=== PATIENT | male | born 1975 ===

== ENCOUNTER 2017-10-26 21:19 | Emergency (ER) | payer SELFPAY ==
[2017-10-26] MEDS ORDERED: Albuterol-Ipratrop 3 mg / 0.5 (3 ml) UD IH STA (21:50)
[2017-10-26 21:54] VITALS: TEMP 98.6; BMI 31.2
--- NOTE | 2017-10-26 22:00 | ED PDOC ---
Arrival/HPI <Tanner Brunson - Last Filed: 10/26/17 22:34> - History of Present Illness Time/Duration: < week Symptom Onset: Gradual Symptom Course: Worsening Quality: Tightness Activities at Onset: Significant Context: Walking, Exertion <Geovanny Munguia - Last Filed: 10/27/17 00:05> - General Chief Complaint: Shortness Of Breath - History of Present Illness Narrative History of Present Illness (Text): 10/26/17 22:07 42 yo M with PMH of asthma/COPD presents to the ER complaining of subjective fever for the past 2 days, and chest tightness since this morning. He denies pain, diaphoresis. He reports shortness of breath, especially when walking up stairs. He reports that symptoms are similar to previous asthma exacerbations. He denies any sick contacts, recent travel, recent changes in medications. He tried using his albuterol inhaler, with minimal symptomatic relief. 10/26/17 22:29 (Geovanny Munguia) Past Medical History <Tanner Brunson - Last Filed: 10/26/17 22:34> - Provider Review Nursing Documentation Reviewed: Yes - Travel History Have you recently traveled outside [place] w/in the past 3 mons?: No - Infectious Disease Hx of Infectious Diseases: None - Tetanus Immunization Tetanus Immunization: Unknown - Cardiac Hx Cardiac Disorders: No - Pulmonary Hx Respiratory Disorders: Yes Hx Asthma: Yes Other/Comment: PNEUMOTHORAX 2 YRS AGO-TUBE PLACED LEFT SIDE OF LUNG. - Neurological Hx Neurological Disorder: No - HEENT Hx HEENT Disorder: No - Renal Hx Renal Disorder: No - Endocrine/Metabolic Hx Endocrine Disorders: No - Hematological/Oncological Hx Blood Disorders: No - Integumentary Hx Dermatological Disorder: No - Musculoskeletal/Rheumatological Hx Musculoskeletal Disorders: No Hx Falls: No - Gastrointestinal Hx Gastrointestinal Disorders: No - Genitourinary/Gynecological Hx Genitourinary Disorders: No - Psychiatric Hx Psychophysiologic Disorder: No Hx Substance Use: No - Past Surgical History Past Surgical History: No Previous - Surgical History Other/Comment: fluid removed out of chest 2 yrs ago - Suicidal Assessment Feels Threatened In Home Enviroment: No <Geovanny Munguia - Last Filed: 10/27/17 00:05> - Patient History Narrative Patient History: Asthma, COPD (Geovanny Munguia) Family/Social History - Physician Review Nursing Documentation Reviewed: Yes Family/Social History: Unknown Family HX Smoking Status: Former Smoker Hx Alcohol Use: No Hx Substance Use: No Hx Substance Use Treatment: No <NildaMiteshjose rgreg - Last Filed: 10/27/17 00:05> Allergies/Home Meds <Tanner Brunson - Last Filed: 10/26/17 22:34> <NildaMiteshjose rgreg - Last Filed: 10/27/17 00:05> Allergies/Adverse Reactions: Allergies No Known Allergies Allergy (Verified 10/26/17 21:32) Review of Systems - Review of Systems Constitutional: Fevers Eyes: Normal ENT: Normal Respiratory: SOB, Wheezing Cardiovascular: Normal Gastrointestinal: Normal Genitourinary Male: Normal Musculoskeletal: Normal Skin: Normal Neurological: Normal Endocrine: Normal Hemo/Lymphatic: Normal Psychiatric: Normal <NildaMiteshjace - Last Filed: 10/27/17 00:05> Physical Exam Vital Signs Reviewed: Yes Temperature: Afebrile Blood Pressure: Normal Pulse: Tachycardic Appearance: Positive for: Non-Toxic, Uncomfortable Pain Distress: None Mental Status: Positive for: Alert and Oriented X 3 - Systems Exam Head: Present: Atraumatic, Normocephalic Pupils: Present: PERRL Extroacular Muscles: Present: EOMI Conjunctiva: Present: Normal Mouth: Present: Moist Mucous Membranes Pharnyx: Present: Normal. No: ERYTHEMA, EXUDATE, TONSILS ENLARGED Neck: Present: Normal Range of Motion Respiratory/Chest: Present: Wheezes. No: Good Air Exchange, Accessory Muscle Use, Tachypneic Cardiovascular: Present: Regular Rate and Rhythm, Normal S1, S2, Tachycardic Abdomen: Present: Normal Bowel Sounds. No: Tenderness, Distention, Peritoneal Signs Upper Extremity: Present: Normal Inspection. No: Cyanosis, Edema Lower Extremity: Present: Normal Inspection. No: Edema, CALF TENDERNESS Neurological: Present: GCS=15, CN II-XII Intact Skin: Present: Warm, Dry, Normal Color Psychiatric: Present: Alert, Oriented x 3 <Geovanny Munguia - Last Filed: 10/27/17 00:05> Vital Signs Temp Pulse Resp BP Pulse Ox 10/26/17 21:19 98.6 F 104 H 20 129/89 97 Medical Decision Making <Tanner Brunson - Last Filed: 10/26/17 22:34> <Geovanny Mnuguia - Last Filed: 10/27/17 00:05> ED Course and Treatment: Impression: Pt seen and evaluated with medical billing service. Aware and agree with HPI, clinical findings, plan, and management. Pt, whose past medical history includes asthma, presented for subjective fever and chest tightness since yesterday morning. Plan: -- Duoneb -- Solu-medrol -- Reassess and disposition (Tanner Brunson) 10/26/17 22:24 Impression: Shortness of breath, likely secondary to mild asthma exacerbation Differential Diagnosis included but are not limited to: asthma exacerbation, COPD exacerbation Plan: -- IV solumedrol 125mg -- Duoneb breathing treatment x1 -- Peak flow meter, initial 150 L/min; repeat after breathing treatment -- Reassess and disposition Prior Visits: Notes and results from previous visits were reviewed. Patient was last seen in the emergency department on 12/20/2015. Patient was admitted for asthma exacerbation. Progress Notes: 10/26/17 23:32 After breathing treatment and IV steroids, patient feels symptomatically improved. Peak flow meter improved to 250 L/min 10/27/17 00:02 Patient reports breathing back to baseline. Will discharge home with 5 day course of PO prednisone. Instructed patient to return for any new or worsening concerns. Follow up with his PMD within one week (Geovanny Munguia) - Medication Orders Current Medication Orders: Discontinued Medications Albuterol/Ipratropium (Duoneb 3 Mg/0.5 Mg (3 Ml) Ud) 3 ml IH STAT STA Stop: 10/26/17 21:51 Last Admin: 10/26/17 22:09 Dose: 3 ml Methylprednisolone (Solu-Medrol) 125 mg IVP STAT STA Stop: 10/26/17 21:51 Last Admin: 10/26/17 22:09 Dose: 125 mg IVP Administration Document 10/26/17 22:09 DARIANA (Rec: 10/26/17 22:09 JOSheri [id number]) Charges for Administration # of IVP Administrations 1 - PA / HEAD WRESTLING COACH / Resident Statement / has reviewed & agrees with the documentation as recorded. / has examined the patient and agrees with the treatment plan. <Tanner Brunson - Last Filed: 10/26/17 22:34> Disposition/Present on Arrival <NannetteTanner pena - Last Filed: 10/26/17 22:34> - Present on Arrival Any Indicators Present on Arrival: No History of DVT/PE: No History of Uncontrolled Diabetes: No Urinary Catheter: No History of Decub. Ulcer: No History Surgical Site Infection Following: None - Disposition Have Diagnosis and Disposition been Completed?: Yes Disposition Time: 00:05 Patient Plan: Discharge <Geovanny Munguia - Last Filed: 10/27/17 00:05> - Disposition Diagnosis: Asthma exacerbation Disposition: HOME/ ROUTINE Patient Problems: Current Active Problems Problem Status Onset Asthma exacerbation Acute Condition: FAIR Discharge Instructions (ExitCare): Asthma, Adult (DC), Medicines for Asthma, Avoiding Asthma Triggers Prescriptions: predniSONE [predniSONE Tab] 40 mg PO DAILY 5 Days tab Referrals: Farida Correia APN-C [Primary Care Provider] - Follow up with primary Forms: [employer] (Tuvaluan)
[2017-10-27 00:59] VITALS: BP 106/72; PULSE 70; RESP 18; O2SAT 99
== END 2017-10-27 00:30 | disposition home or self-care (01) ==
LOC: ED 21:19
DX: J45.901 Unspecified asthma with (acute) exacerbation (principal); Z87.891 Personal history of nicotine dependence
CPT/HCPCS: 96374; 99284; J2930

== ENCOUNTER 2018-03-31 10:23 | Emergency (ER) | payer OTHER ==
[2018-03-31 10:23] VITALS: BMI 26.2
[2018-03-31 11:02] VITALS: RESP 18
[2018-03-31] MEDS ORDERED: Albuterol-Ipratrop 3 mg / 0.5 (3 ml) UD ONE (11:09)
[2018-03-31] MEDS ORDERED: Albuterol-Ipratrop 3 mg / 0.5 (3 ml) UD IH STA (11:10)
--- NOTE | 2018-03-31 11:14 | ED PDOC ---
Arrival/HPI - General Chief Complaint: Cough, Cold, Congestion Time Seen by Provider: 03/31/18 11:09 Historian: Patient - History of Present Illness Narrative History of Present Illness (Text): 03/31/18 11:11 42 y/o male, pmh including asthma?, nkda, c/o coughing and wheezing started yesterday. Dry coughing, associated with scattered wheezing, out of the albuterol MDI, no fever or chills, no myalgia, no rash, no dizziness, no change in vision, no palpitation, no chest pain or shortness of breath, no other medical or psychological complaints. Past Medical History - Provider Review Nursing Documentation Reviewed: Yes - Infectious Disease Hx of Infectious Diseases: None - Tetanus Immunization Tetanus Immunization: Unknown - Cardiac Hx Cardiac Disorders: No - Pulmonary Hx Respiratory Disorders: Yes Hx Asthma: Yes Other/Comment: PNEUMOTHORAX 2 YRS AGO-TUBE PLACED LEFT SIDE OF LUNG. - Neurological Hx Neurological Disorder: No - HEENT Hx HEENT Disorder: No - Renal Hx Renal Disorder: No - Endocrine/Metabolic Hx Endocrine Disorders: No - Hematological/Oncological Hx Blood Disorders: No - Integumentary Hx Dermatological Disorder: No - Musculoskeletal/Rheumatological Hx Musculoskeletal Disorders: No Hx Falls: No - Gastrointestinal Hx Gastrointestinal Disorders: No - Genitourinary/Gynecological Hx Genitourinary Disorders: No - Psychiatric Hx Psychophysiologic Disorder: No Hx Substance Use: No - Past Surgical History Past Surgical History: No Previous - Surgical History Other/Comment: fluid removed out of chest 2 yrs ago - Anesthesia Hx Anesthesia: Yes Hx Anesthesia Reactions: No Hx Malignant Hyperthermia: No - Suicidal Assessment Feels Threatened In Home Enviroment: No Family/Social History - Physician Review Nursing Documentation Reviewed: Yes Family/Social History: Unknown Family HX Smoking Status: Former Smoker Hx Alcohol Use: No Hx Substance Use: No Hx Substance Use Treatment: No Allergies/Home Meds Allergies/Adverse Reactions: Allergies No Known Allergies Allergy (Verified 03/31/18 11:02) Review of Systems - Review of Systems Constitutional: absent: Fatigue, Fevers Eyes: absent: Vision Changes ENT: absent: Hearing Changes Respiratory: Cough, Wheezing. absent: SOB, Sputum Cardiovascular: absent: Chest Pain Gastrointestinal: absent: Abdominal Pain, Diarrhea, Nausea, Vomiting Musculoskeletal: absent: Arthralgias, Back Pain Skin: absent: Rash, Pruritis Neurological: absent: Headache, Dizziness Hemo/Lymphatic: absent: Adenopathy, Easy Bleeding Psychiatric: absent: Anxiety, Depression, Suicidal Ideation Physical Exam Vital Signs Reviewed: Yes Vital Signs Temp Pulse Resp BP Pulse Ox 03/31/18 12:12 97.8 F 78 18 113/71 98 03/31/18 10:55 99.1 F 91 H 18 112/73 95 Temperature: Afebrile Blood Pressure: Normal Pulse: Regular Respiratory Rate: Normal Appearance: Positive for: Well-Appearing, Non-Toxic, Comfortable Pain Distress: None Mental Status: Positive for: Alert and Oriented X 3 - Systems Exam Head: Present: Atraumatic, Normocephalic Pupils: Present: PERRL Extroacular Muscles: Present: EOMI Conjunctiva: Present: Normal Mouth: Present: Moist Mucous Membranes Neck: Present: Normal Range of Motion Respiratory/Chest: Present: Clear to Auscultation, Good Air Exchange, Wheezes. No: Respiratory Distress, Accessory Muscle Use, Decreased Breath Sounds, Rales, Retracting, Rhonchi, Tachypneic, Tender to Palpation Cardiovascular: Present: Regular Rate and Rhythm, Normal S1, S2. No: Murmurs Abdomen: No: Tenderness, Distention, Peritoneal Signs, Rebound, Guarding Back: Present: Normal Inspection Upper Extremity: Present: Normal Inspection. No: Cyanosis, Edema Lower Extremity: Present: Normal Inspection. No: Edema Neurological: Present: GCS=15, CN II-XII Intact, Speech Normal, Motor Func Grossly Intact, Gait Normal, Memory Normal Skin: Present: Warm, Dry, Normal Color. No: Rashes Psychiatric: Present: Alert, Oriented x 3, Normal Insight, Normal Concentration Medical Decision Making ED Course and Treatment: 03/31/18 11:13 -Duoneb x 2, prednisone 60mg po, azithromycin 500mg po -CXR -Observe and reassess 03/31/18 12:09 -Chest xray show no active disease, pt. feels much better, wheezing resolved, walking around with no shortness of breath, all results discussed with the patient, pt. requested to be discharge home. -Discharge home with azithromycin, prednisone, albuterol MDI, stay hydrated, bed rest, follow up with your own pmd within 2 days, return to the ER for any new or worsening signs or symptoms. - RAD Interpretation Radiology Orders: 03/31/18 11:10 CHEST PORTABLE [RAD] Stat Date of service: 03/31/2018 HISTORY: medical clearance COMPARISON: 12/21/2015 FINDINGS: LUNGS: No active pulmonary disease. PLEURA: No significant pleural effusion identified, no pneumothorax apparent. CARDIOVASCULAR: Normal. OSSEOUS STRUCTURES: No significant abnormalities. VISUALIZED UPPER ABDOMEN: Normal. OTHER FINDINGS: None. IMPRESSION: No active disease. Sports Physical Therapist: Radiologist - Medication Orders Current Medication Orders: Discontinued Medications Albuterol/Ipratropium (Duoneb 3 Mg/0.5 Mg (3 Ml) Ud) 3 ml IH STAT STA Stop: 03/31/18 11:11 Last Admin: 03/31/18 11:38 Dose: 3 ml Azithromycin (Zithromax) 500 mg PO STAT STA PRN Reason: Protocol Stop: 03/31/18 11:11 Last Admin: 03/31/18 11:34 Dose: 500 mg Prednisone (Prednisone Tab) 60 mg PO STAT ONE Stop: 03/31/18 11:11 Last Admin: 03/31/18 11:36 Dose: 60 mg - PA / FARM DEMONSTRATOR / Resident Statement MD/DO has reviewed & agrees with the documentation as recorded. Disposition/Present on Arrival - Present on Arrival Any Indicators Present on Arrival: No History of DVT/PE: No History of Uncontrolled Diabetes: No Urinary Catheter: No History of Decub. Ulcer: No History Surgical Site Infection Following: None - Disposition Have Diagnosis and Disposition been Completed?: Yes Diagnosis: Bronchitis Disposition: HOME/ ROUTINE Disposition Time: 11:42 Patient Plan: Discharge Condition: IMPROVED Additional Instructions: -Discharge home with azithromycin, prednisone, albuterol MDI, stay hydrated, bed rest, follow up with your own pmd within 2 days, return to the ER for any new or worsening signs or symptoms. Prescriptions: Albuterol HFA [Ventolin HFA 90 mcg/actuation (8 g)] 2 puff IH [id number] PRN #1 inhaler PRN Reason: Cough Azithromycin [Zithromax] 250 mg PO DAILY #4 tab Prednisone 50 mg PO DAILY #4 tablet Referrals: Sherley Ybarra MD [Staff Provider] - [place] up with primary [facility] [place] - Follow up with primary Forms: [employer] (Romansh), WORK NOTE
[2018-03-31 12:13] VITALS: BP 113/71; PULSE 78; TEMP 97.8; O2SAT 98
--- NOTE | 2018-03-31 14:51 | RAD ---
Date of service: 03/31/2018 HISTORY: medical clearance COMPARISON: 12/21/2015 FINDINGS: LUNGS: No active pulmonary disease. PLEURA: No significant pleural effusion identified, no pneumothorax apparent. CARDIOVASCULAR: Normal. OSSEOUS STRUCTURES: No significant abnormalities. VISUALIZED UPPER ABDOMEN: Normal. OTHER FINDINGS: None. IMPRESSION: No active disease.
== END 2018-03-31 12:24 | disposition home or self-care (01) ==
LOC: ED 10:23
DX: J40 Bronchitis, not specified as acute or chronic (principal); Z87.891 Personal history of nicotine dependence

== ENCOUNTER 2018-04-14 22:31 | Emergency (ER) | payer OTHER ==
[2018-04-14] MEDS ORDERED: MethylPREDNISolone 40 mg Vial ONE (22:39)
[2018-04-14] MEDS ORDERED: Albuterol-Ipratrop 3 mg / 0.5 (3 ml) UD ONE (22:45)
[2018-04-14 22:47] VITALS: BMI 27.3
[2018-04-14] MEDS ORDERED: MethylPREDNISolone 40 mg Vial IVP STA (22:49)
[2018-04-14] MEDS ORDERED: Magnesium Sulfate 2 gm/50 ml 2 GM/50 ML BAG IVPB ONE (22:49)
--- NOTE | 2018-04-14 22:49 | ED PDOC ---
Arrival/HPI - General Time Seen by Provider: 04/14/18 22:48 Historian: Patient - History of Present Illness Narrative History of Present Illness (Text): 04/14/18 22:49 42 year old male, whose past medial history includes asthma/COPD, presents to the emergency department complaining of shortness of breath. Patient denies any fever, chills, chest pain, nausea, vomiting, diarrhea, urinary symptoms, back pain, neck pain, headache, dizziness, or any other complaints. Symptom Onset: Gradual Symptom Course: Unchanged Activities at Onset: Light Context: Home Past Medical History - Provider Review Nursing Documentation Reviewed: Yes - Infectious Disease Hx of Infectious Diseases: None - Tetanus Immunization Tetanus Immunization: Unknown - Cardiac Hx Cardiac Disorders: No - Pulmonary Hx Respiratory Disorders: Yes Hx Asthma: Yes Other/Comment: PNEUMOTHORAX 2 YRS AGO-TUBE PLACED LEFT SIDE OF LUNG. - Neurological Hx Neurological Disorder: No - HEENT Hx HEENT Disorder: No - Renal Hx Renal Disorder: No - Endocrine/Metabolic Hx Endocrine Disorders: No - Hematological/Oncological Hx Blood Disorders: No - Integumentary Hx Dermatological Disorder: No - Musculoskeletal/Rheumatological Hx Musculoskeletal Disorders: No Hx Falls: No - Gastrointestinal Hx Gastrointestinal Disorders: No - Genitourinary/Gynecological Hx Genitourinary Disorders: No - Psychiatric Hx Psychophysiologic Disorder: No Hx Substance Use: No - Past Surgical History Past Surgical History: No Previous - Surgical History Other/Comment: fluid removed out of chest 2 yrs ago - Anesthesia Hx Anesthesia: Yes Hx Anesthesia Reactions: No Hx Malignant Hyperthermia: No - Suicidal Assessment Feels Threatened In Home Enviroment: No Family/Social History - Physician Review Nursing Documentation Reviewed: Yes Family/Social History: No Known Family HX Smoking Status: Former Smoker Hx Alcohol Use: No Hx Substance Use: No Hx Substance Use Treatment: No Allergies/Home Meds Allergies/Adverse Reactions: Allergies No Known Allergies Allergy (Verified 04/14/18 22:46) Review of Systems - Physician Review All systems were reviewed & negative as marked: Yes - Review of Systems Constitutional: absent: Fevers, Other (Chills) Respiratory: SOB Cardiovascular: absent: Chest Pain Gastrointestinal: absent: Diarrhea, Nausea, Vomiting Genitourinary Male: absent: Dysuria, Frequency, Hematuria Musculoskeletal: absent: Back Pain, Neck Pain Neurological: absent: Headache, Dizziness Physical Exam - Physical Exam Narrative Physical Exam (Text): Gen: VS reviewed, alert, well developed, well nourished, nontoxic, mild distress. ENT: normal pharynx. Eye: EOMI, PERRL. Neck: no JVD, supple, no adenopathy. CV: regular rate, regular rhythm, no rubs, no murmur, no gallops, S1, S2, pulses equal and strong. Pulm: Tachypneic. Talk in short phrase. Diffuse bilaterally expiratory wheeze. Poor air exchange bilaterally. no distress, no rhonchi, no rales. Abd: soft, nontender, no guarding, no rebound, no rigidity, normal bowel sounds. Ext: no edema. Skin: good color, no rash, no cyanosis. Psych: responds appropriately to questions, normal affect. Neuro: oriented x 3, CN2-12 intact grossly, motor intact, sensation intact. Vital Signs Reviewed: Yes Medical Decision Making ED Course and Treatment: 04/14/18 22:49 Impression: 42 year old male presents complaining of shortness of breath. Plan: -- Labs -- Douneb, Magnesium Sulfate, Solu-medrol -- Reassess and disposition Prior Visits: Notes and results from previous visits were reviewed. Patient was last seen in the emergency department on presents complaining cough and wheezing that began yesterday. Progress Notes: 04/15/18 01:27 patient feel much better, appears comfortable, on repeat lung exam wheezing has resolved, good air exchange bilat. Patient remained stable throughout ED course with complete resolution of symptoms. All detailed hx of patient obtained through maltese language line: [id number]. 04/15/18 01:32 PMHx: asthma PSHx: none - Lab Interpretations I have reviewed the lab results: Yes - Scribe Statement The provider has reviewed the documentation as recorded by the Pastora Omer Provider Scribe Attestation: All medical record entries made by the Scribclarice were at my direction and personally dictated by me. I have reviewed the chart and agree that the record accurately reflects my personal performance of the history, physical exam, medical decision making, and the department course for this patient. I have also personally directed, reviewed, and agree with the discharge instructions and disposition. Disposition/Present on Arrival - Present on Arrival Any Indicators Present on Arrival: No History of DVT/PE: No History of Uncontrolled Diabetes: No Urinary Catheter: No History Surgical Site Infection Following: None - Disposition Have Diagnosis and Disposition been Completed?: Yes Diagnosis: Asthma exacerbation Disposition: HOME/ ROUTINE Disposition Time: : Patient Plan: Discharge Patient Problems: Current Active Problems Problem Status Onset Asthma exacerbation Acute Condition: STABLE Discharge Instructions (ExitCare): Asthma in Adults Print Language: SWAZI Additional Instructions: BENJAMIN RANGEL, thank you for letting us take care of you today. Your provider was Dr. Harshal Sierra and you were treated for ASTHMA. The emergency medical care you received today was directed at your acute symptoms. If you were prescribed any medication, please fill it and take as directed. It may take several days for your symptoms to resolve. Return to the Emergency Department if your symptoms worsen, do not improve, or if you have any other problems. Please contact your doctor or call one of the physicians/clinics you have been referred to that are listed on the Patient Visit Information form that is included in your discharge packet. Bring any paperwork you were given at discharge with you along with any medications you are taking to your follow up visit. Our treatment cannot replace ongoing medical care by a primary care provider outside of the emergency department. Thank you for allowing the [facility] team to be part of your care today. If you had an X-Ray or CT scan: A Radiologist will review the ED reading if any change in treatment is needed we will contact you. If you had a blood, urine, or wound culture: It will take several days for the results, if any change in treatment is needed we will contact you. If you had an STI test: It will take 48 hours for the results. Please call after 1 week if you have not heard back. Prescriptions: Albuterol HFA [Ventolin HFA 90 mcg/actuation (8 g)] 1 puff IH Q4H #1 inhaler Referrals: [facility] [Outside] - Follow up with primary
[2018-04-14] MEDS: Albuterol-Ipratrop 3 mg / 0.5 (3 ml) UD IH SCH ×3 (23:00→23:30)
[2018-04-14 23:04] LABS: BASO # 0.02 K/mm3 (0.0-2.0); BASO % 0.2 % (0.0-3.0); EOS % 9.5 % (1.5-5.0); GRAN # 5.45 (1.4-6.5); GRAN % 52.3 % (50.0-68.0); LYMPH # 3.3 (1.2-3.4); LYMPH % 31.9 % (22.0-35.0); MEAN CELL VOLUME 87.9 fl (80.0-105.0); MEAN CORPUSCULAR HEMOGLOBIN 30.2 pg (25.0-35.0); MEAN CORPUSCULAR HGB CONC 34.3 g/dl (31.0-37.0); MEAN PLATELET VOLUME 8.8 fl (7.0-11.0); MONO # 0.6 (0.1-0.6); MONO % 6.1 % (1.0-6.0); RBC 5.3 10^6/uL (3.5-6.1); RED CELL DISTRIBUTION WIDTH 13.5 % (11.5-14.5); WHITE BLOOD COUNT 10.4 10^3/ul (4.5-11.0)
[2018-04-14] MEDS ORDERED: Albuterol 0.083% Inhal Sol (2.5 mg/3 mL) UD INH STA (23:55)
[2018-04-15 00:02] LABS: BLOOD UREA NITROGEN 22 mg/dL (7-21); CALCIUM 8.4 mg/dL (8.4-10.5); GFR NON-AFRICAN AMERICAN > 60
[2018-04-15 01:34] VITALS: BP 115/77; PULSE 78; RESP 18
[2018-04-15 03:04] VITALS: O2SAT 100
== END 2018-04-15 01:39 | disposition home or self-care (01) ==
LOC: ED 22:31
DX: J45.901 Unspecified asthma with (acute) exacerbation (principal); Z87.891 Personal history of nicotine dependence
CPT/HCPCS: 80048; 85025; 96374; 99284; J2920

== ENCOUNTER 2018-06-07 11:25 | Emergency (ER) | payer OTHER ==
[2018-06-07 11:38] VITALS: BMI 22.4
[2018-06-07 12:09] VITALS: BP 122/63; PULSE 77
[2018-06-07] MEDS: Albuterol-Ipratrop 3 mg / 0.5 (3 ml) UD IH SCH ×3 (12:17→12:50)
--- NOTE | 2018-06-07 12:38 | RAD ---
Date of service: 06/07/2018 HISTORY: sob COMPARISON: 03/31/2018 TECHNIQUE: Chest PA and lateral FINDINGS: LUNGS: No active pulmonary disease. PLEURA: No significant pleural effusion identified. No pneumothorax apparent. CARDIOVASCULAR: No aortic atherosclerotic calcification present. Normal cardiac size. No pulmonary vascular congestion. OSSEOUS STRUCTURES: No significant abnormalities. VISUALIZED UPPER ABDOMEN: Normal. OTHER FINDINGS: None. IMPRESSION: No active disease.
--- NOTE | 2018-06-07 12:51 | ED PDOC ---
Arrival/HPI - General Chief Complaint: Chest Pain Time Seen by Provider: 06/07/18 11:59 Historian: Patient - History of Present Illness Narrative History of Present Illness (Text): 06/07/18 12:10 A 42 year old male, whose past medical history includes asthma, presents to the emergency department complaining of upper chest congestion since a few days ago. Patient reports that he has these symptoms with associated difficulty breathing when he wakes up and more significantly at night. Patient reports he experiences associated ache in his left upper back and denies any active cough today, or any drug or alcohol abuse. Patient denies any fever, chills, shortness of breath, cough, chest pain, diarrhea, nausea, vomiting, urinary symptoms, back pain, neck pain, headache, dizziness, or any other complaints. PMD: [facility]. Time/Duration: Other (a few days) Symptom Onset: Gradual Symptom Course: Unchanged Activities at Onset: Light Context: Home Past Medical History - Provider Review Nursing Documentation Reviewed: Yes - Infectious Disease Hx of Infectious Diseases: None - Tetanus Immunization Tetanus Immunization: Unknown - Cardiac Hx Cardiac Disorders: No - Pulmonary Hx Respiratory Disorders: Yes Hx Asthma: Yes Other/Comment: PNEUMOTHORAX 2 YRS AGO-TUBE PLACED LEFT SIDE OF LUNG. - Neurological Hx Neurological Disorder: No - HEENT Hx HEENT Disorder: No - Renal Hx Renal Disorder: No - Endocrine/Metabolic Hx Endocrine Disorders: No - Hematological/Oncological Hx Blood Disorders: No - Integumentary Hx Dermatological Disorder: No - Musculoskeletal/Rheumatological Hx Musculoskeletal Disorders: No Hx Falls: No - Gastrointestinal Hx Gastrointestinal Disorders: No - Genitourinary/Gynecological Hx Genitourinary Disorders: No - Psychiatric Hx Psychophysiologic Disorder: No Hx Substance Use: No - Past Surgical History Past Surgical History: No Previous - Surgical History Other/Comment: fluid removed out of chest 2 yrs ago - Anesthesia Hx Anesthesia: Yes Hx Anesthesia Reactions: No Hx Malignant Hyperthermia: No - Suicidal Assessment Feels Threatened In Home Enviroment: No Family/Social History - Physician Review Nursing Documentation Reviewed: Yes Family/Social History: No Known Family HX Smoking Status: Former Smoker Hx Alcohol Use: No Hx Substance Use: No Hx Substance Use Treatment: No Allergies/Home Meds Allergies/Adverse Reactions: Allergies No Known Allergies Allergy (Verified 06/07/18 11:38) Review of Systems - Physician Review All systems were reviewed & negative as marked: Yes - Review of Systems Respiratory: Other (+Difficulty breathing). absent: SOB Cardiovascular: Other (+upper chest discomfort). absent: Chest Pain Gastrointestinal: absent: Diarrhea, Nausea, Vomiting Genitourinary Male: absent: Urinary Output Changes Musculoskeletal: Back Pain (+ache in left upper back). absent: Neck Pain Neurological: absent: Headache, Dizziness Physical Exam Vital Signs Reviewed: Yes Vital Signs Temp Pulse Resp BP Pulse Ox 06/07/18 12:09 98.7 F 77 18 122/63 95 Temperature: Afebrile Blood Pressure: Normal Pulse: Regular Respiratory Rate: Normal Appearance: Positive for: Well-Appearing, Non-Toxic Pain Distress: None Mental Status: Positive for: Alert and Oriented X 3 - Systems Exam Head: Present: Atraumatic, Normocephalic Pupils: Present: PERRL Extroacular Muscles: Present: EOMI Conjunctiva: Present: Normal Respiratory/Chest: Present: Wheezes. No: Retracting, Tender to Palpation Upper Extremity: Present: Normal Inspection. No: Cyanosis, Edema Lower Extremity: Present: Normal Inspection. No: Edema Neurological: Present: GCS=15, CN II-XII Intact, Speech Normal Skin: Present: Warm, Dry, Normal Color. No: Rashes Psychiatric: Present: Alert, Oriented x 3, Normal Insight, Normal Concentration Medical Decision Making ED Course and Treatment: 06/07/18 12:15 Impression: 42 year old male presenting to the emergency department for upper chest congestion. Differential Diagnosis included but are not limited to: asthma exacerbation Plan: -- EKG -- Motrin -- prednisone -- Reassess and disposition Prior Visits: Notes and results from previous visits were reviewed. Patient was last seen in the emergency department on 04/14/18 for shortness of breath and was discharged when symptoms improved. Progress Notes: 06/07/18 12:59 Upon re-evaluation, patient's lungs are clear with no shortness of breath. Patient states he does not need a prescription for albuterol pump or solution. EKG: Ordered, reviewed, and independently interpreted the EKG. Rate : 81 BPM Rhythm : NSR Interpretation : Sinus arrythmia, No ST-segment elevations or depressions. - RAD Interpretation Radiology Orders: 06/07/18 12:07 CHEST TWO VIEWS (PA/LAT) [RAD] Stat - Medication Orders Current Medication Orders: Discontinued Medications Albuterol/Ipratropium (Duoneb 3 Mg/0.5 Mg (3 Ml) Ud) 3 ml IH Q15M NANCI Stop: 06/07/18 12:46 Last Admin: 06/07/18 12:17 Dose: 3 ml Ibuprofen (Motrin Tab) 600 mg PO STAT STA Stop: 06/07/18 12:08 Last Admin: 06/07/18 12:15 Dose: 600 mg MAR Pain/Vitals Document 06/07/18 12:15 [email or web address] (Rec: 06/07/18 12:17 [email or web address] [facility] [place]-[id number]) Pain Reassessment Is This A Pain ReAssessment? No Sleep Is patient sleeping during reassessment? No Presence of Pain Presence of Pain Yes Pain Scale Used Protocol: PSCALES Pain Scale Used Numeric Location Pain Location Body Site Chest Description Constant Scale Used Numeric Pain Behavior Facial Grimacing Aggravating Factors Changing Position Alleviating Factors Medication Prednisone (Prednisone Tab) 60 mg PO STAT STA Stop: 06/07/18 12:08 Last Admin: 06/07/18 12:17 Dose: 60 mg - Lisaibe Statement The provider has reviewed the documentation as recorded by the Pastora Velasquez All medical record entries made by the Lisaibclarice were at my direction and personally dictated by me. I have reviewed the chart and agree that the record accurately reflects my personal performance of the history, physical exam, medical decision making, and the department course for this patient. I have also personally directed, reviewed, and agree with the discharge instructions and disposition. Disposition/Present on Arrival - Present on Arrival Any Indicators Present on Arrival: No History of DVT/PE: No History of Uncontrolled Diabetes: No Urinary Catheter: No History of Decub. Ulcer: No History Surgical Site Infection Following: None - Disposition Have Diagnosis and Disposition been Completed?: Yes Diagnosis: Asthma exacerbation Disposition: HOME/ ROUTINE Disposition Time: 12:59 Patient Plan: Discharge Condition: IMPROVED Discharge Instructions (ExitCare): Asthma in Adults Additional Instructions: BENJAMIN RANGEL, thank you for letting us take care of you today. Your provider was Abdi Mcrae DO and you were treated for Asthma Exacerbation. The emergency medical care you received today was directed at your acute symptoms. If you were prescribed any medication, please fill it and take as directed. It may take several days for your symptoms to resolve. Return to the Emergency Department if your symptoms worsen, do not improve, or if you have any other problems. Please contact your doctor or call one of the physicians/clinics you have been referred to that are listed on the Patient Visit Information form that is included in your discharge packet. Bring any paperwork you were given at discharge with you along with any medications you are taking to your follow up visit. Our treatment cannot replace ongoing medical care by a primary care provider outside of the emergency department. Thank you for allowing the [facility] team to be part of your care today. If you had an X-Ray or CT scan: A Radiologist will review the ED reading if any change in treatment is needed we will contact you. If you had a blood, urine, or wound culture: It will take several days for the results, if any change in treatment is needed we will contact you. If you had an STI test: It will take 48 hours for the results. Please call after 1 week if you have not heard back. Prescriptions: RX: predniSONE [predniSONE Tab] 40 mg PO DAILY #8 tab Referrals: [facility] [Outside] - Follow up with primary Jaki Mcleod MD [Medical Doctor] - Follow up with primary Forms: [employer] (Romansh), WORK NOTE
[2018-06-07 13:14] VITALS: RESP 19; TEMP 98.3; O2SAT 99
--- NOTE | 2018-06-08 07:37 | CARD ---
APPROVED REPORT Date of service: 06/07/2018 EKG Measurement Heart [id number] CT [id number] <Conclusion> Normal sinus rhythm with sinus arrhythmia Indeterminate axis No change except the rate has slowed.
== END 2018-06-07 13:14 | disposition home or self-care (01) ==
LOC: ED 11:25
DX: J45.901 Unspecified asthma with (acute) exacerbation (principal); Z87.891 Personal history of nicotine dependence

== ENCOUNTER 2018-06-22 09:06 | Emergency (ER) | payer OTHER ==
[2018-06-22 09:07] VITALS: BMI 22.4
[2018-06-22] MEDS ORDERED: Sodium Chloride 0.9% 1,000 ML IV STA (09:36)
--- NOTE | 2018-06-22 09:46 | ED PDOC ---
Arrival/HPI - General Historian: Patient - History of Present Illness Narrative History of Present Illness (Text): 06/22/18 09:40 42 y o male past medical hx asthma, presents to the emergency department complaining of nausea and diarrhea. States he has been not feeling well for the last 2 days but that his symptoms have gotten worse since yesterday. Reports 4 episodes of watery, non-bloody diarrhea yesterday afternoon, but states that he has had nausea before and after the episodes. States he has been unable to tolerate PO liquids and solid foods since yesterday afternoon. Also states he has associated abdominal tenderness, but rates it 1/10 currently. Denies fever or chills. Denies hx of sick contacts or recent antibiotic use. Denies headache, dizziness, chest pain, shortness of breath, vomiting episodes, constipation, urinary complaints, or other symptoms currently. Past medical history: asthma PSurgHx: denies Allergies: NKDA Home meds: Ventolin inhaler prn Fam hx: denies Soc hx: denies smoking, EtOH, or illicit drug use. PMD: [facility] Time/Duration: 24 hours Symptom Onset: Gradual Symptom Course: Worsening Quality: Unable to Describe Severity Level: 1 Activities at Onset: Rest, Light Context: Home <Basil Wright - Last Filed: 06/22/18 13:53> <Abdi Mcrae - Last Filed: 06/22/18 16:34> - General Chief Complaint: Abdominal Pain Time Seen by Provider: 06/22/18 09:07 Past Medical History - Provider Review Nursing Documentation Reviewed: Yes - Infectious Disease Hx of Infectious Diseases: None - Tetanus Immunization Tetanus Immunization: Unknown - Cardiac Hx Cardiac Disorders: No - Pulmonary Hx Respiratory Disorders: Yes Hx Asthma: Yes Other/Comment: PNEUMOTHORAX 2 YRS AGO-TUBE PLACED LEFT SIDE OF LUNG. - Neurological Hx Neurological Disorder: No - HEENT Hx HEENT Disorder: No - Renal Hx Renal Disorder: No - Endocrine/Metabolic Hx Endocrine Disorders: No - Hematological/Oncological Hx Blood Disorders: No - Integumentary Hx Dermatological Disorder: No - Musculoskeletal/Rheumatological Hx Musculoskeletal Disorders: No Hx Falls: No - Gastrointestinal Hx Gastrointestinal Disorders: No - Genitourinary/Gynecological Hx Genitourinary Disorders: No - Psychiatric Hx Psychophysiologic Disorder: No Hx Substance Use: No - Past Surgical History Past Surgical History: No Previous - Surgical History Other/Comment: fluid removed out of chest 2 yrs ago - Anesthesia Hx Anesthesia: Yes Hx Anesthesia Reactions: No Hx Malignant Hyperthermia: No - Suicidal Assessment Feels Threatened In Home Enviroment: No <Basil Wright - Last Filed: 06/22/18 13:53> Family/Social History - Physician Review Nursing Documentation Reviewed: Yes Family/Social History: No Known Family HX Smoking Status: Former Smoker Hx Alcohol Use: No Hx Substance Use: No Hx Substance Use Treatment: No <Basil Wright - Last Filed: 06/22/18 13:53> Allergies/Home Meds <Basil Wright - Last Filed: 06/22/18 13:53> <ThorAbdi L - Last Filed: 06/22/18 16:34> Allergies/Adverse Reactions: Allergies No Known Allergies Allergy (Verified 06/22/18 09:16) Review of Systems - Physician Review All systems were reviewed & negative as marked: Yes - Review of Systems Constitutional: Fatigue. absent: Weight Change, Fevers, Night Sweats Eyes: absent: Vision Changes Respiratory: absent: SOB, Cough, Wheezing Cardiovascular: absent: Chest Pain, Palpitations, Edema, NGUYEN Gastrointestinal: Abdominal Pain, Stool Changes, Diarrhea, Nausea, Appetite Changes. absent: Constipation, Vomiting Genitourinary Male: absent: Dysuria, Frequency, Hematuria, Urinary Output Changes Musculoskeletal: absent: Arthralgias, Back Pain Skin: absent: Rash Neurological: absent: Headache, Dizziness Endocrine: absent: Diaphoresis Hemo/Lymphatic: absent: Adenopathy <Basil Wright - Last Filed: 06/22/18 13:53> Physical Exam Vital Signs Temp Pulse Resp BP Pulse Ox 06/22/18 09:13 98.5 F 98 H 18 112/80 97 Temperature: Afebrile Blood Pressure: Normal Pulse: Regular Respiratory Rate: Normal Appearance: Positive for: Non-Toxic, Comfortable, Ill-Appearing Pain Distress: None Mental Status: Positive for: Alert and Oriented X 3 - Systems Exam Head: Present: Atraumatic, Normocephalic Pupils: Present: PERRL Extroacular Muscles: Present: EOMI Conjunctiva: Present: Normal Mouth: Present: Moist Mucous Membranes Neck: Present: Normal Range of Motion. No: JVD, Lymphadenopathy Respiratory/Chest: Present: Clear to Auscultation, Good Air Exchange. No: Respiratory Distress, Accessory Muscle Use, Wheezes, Rales, Rhonchi Cardiovascular: Present: Regular Rate and Rhythm, Normal S1, S2. No: Murmurs, Rub, Gallop Abdomen: Present: Tenderness (Mild tenderness to palpation in epigastric region), Normal Bowel Sounds. No: Distention, Rebound, Guarding, Mass/Organomegaly Upper Extremity: Present: Normal Inspection, Normal ROM, NORMAL PULSES, Neurovascularly Intact, Capillary Refill < 2s, Norm 2-Pt Discrimination. No: Cyanosis, Edema, Temperature Abnormalties Lower Extremity: Present: Normal Inspection, NORMAL PULSES, Normal ROM, Neurovascularly Intact, Capillary Refill < 2 s. No: Edema, Temperature Abnormalties Neurological: Present: GCS=15, CN II-XII Intact, Speech Normal, Motor Func Grossly Intact, Normal Sensory Function Skin: Present: Warm, Dry, Normal Color. No: Rashes Psychiatric: Present: Alert, Oriented x 3, Normal Insight, Normal Concentration <Basil Wright - Last Filed: 06/22/18 13:53> Vital Signs Temp Pulse Resp BP Pulse Ox 06/22/18 09:13 98.5 F 98 H 18 112/80 97 <Abdi Mcrae - Last Filed: 06/22/18 16:34> Medical Decision Making ED Course and Treatment: 06/22/18 09:48 42 y o male Past medical history asthma presenting with nausea and diarrhea x 4 episodes since yesterday. Likely 2/2 viral gastroenteritis. Plan: -Labs -IVF -Zofran, Pepcid Will continue to monitor. 06/22/18 10:50 Reassessed pt, states he is feeling a little better, nausea has improved. No further episodes of diarrhea since being monitored in the emergency department. No elevated WBC on CBC. LFTs mildly elevated on CMP. Instructed pt to have LFTs repeated again when he follows up in the clinic in 2-3 days after ER discharge. Given scripts for Zofran and Pepcid. Instructed to return to the emergency department or call his PMD if his symptoms recur or worsen. Pt to be discharged to home at this time. Able to tolerate PO challenge in the emergency department prior to discharge. - Medication Orders Current Medication Orders: Famotidine (Pepcid) 20 mg IVP STAT STA Stop: 06/22/18 09:37 Ondansetron HCl (Zofran Inj) 4 mg IVP STAT STA Stop: 06/22/18 09:37 <Basil Wright - Last Filed: 06/22/18 13:53> ED Course and Treatment: 06/22/18 10:30 A 42 year old male who presents to the emergency department with a complaint of nausea and diarrhea. Patient has a medical history of asthma. In agreement with resident note, which includes further HPI details. Patient was seen and evaluated with resident, came up with plan and treatment together. On reevaluation patient was much better and he was explained lab results in [place] by me. Abdomen soft and NT. Tolerating PO fluids. He will f/u with PMD as outpatient as noted above. - Lab Interpretations Lab Results: 06/22/18 10:00 Lab Results 06/22/18 10:00: WBC 10.2, RBC 5.40, Hgb 17.3, Hct 48.4, MCV 89.6, MCH 32.0, MCHC 35.7, RDW 13.7, Plt Count 215, MPV 9.2, Gran % 80.6 H, Lymph % (Auto) 7.8 L, [place] % (Auto) 9.7 H, Eos % (Auto) 1.8, Baso % (Auto) 0.1, Gran # 8.23 H, Lymph # (Auto) 0.8 L, [place] # (Auto) 1.0 H, Eos # (Auto) 0.2, Baso # (Auto) 0.01 - Medication Orders Current Medication Orders: Sodium Chloride (Sodium Chloride 0.9%) 1,000 mls @ 999 mls/hr IV .Q1H1M STA Stop: 06/22/18 10:36 Last Admin: 06/22/18 10:09 Dose: 999 mls/hr eMAR Start Stop Document 06/22/18 10:09 (Rec: 06/22/18 10:10 [email or web address]) Intravenous Solution Start Date 06/22/18 Start Time 09:45 End Date 06/22/18 End time 10:45 Total Infusion Time 60 Discontinued Medications Famotidine (Pepcid) 20 mg IVP STAT STA Stop: 06/22/18 09:37 Last Admin: 06/22/18 09:47 Dose: 20 mg IVP Administration Document 06/22/18 09:47 RC (Rec: 06/22/18 10:10 [email or web address]) Charges for Administration # of IVP Administrations 1 Ondansetron HCl (Zofran Inj) 4 mg IVP STAT STA Stop: 06/22/18 09:37 Last Admin: 06/22/18 09:49 Dose: 4 mg IVP Administration Document 06/22/18 09:49 RC (Rec: 06/22/18 10:10 [email or web address] Charges for Administration # of IVP Administrations 1 <Abdi Mcrae - Last Filed: 06/22/18 16:34> - Scribe Statement The provider has reviewed the documentation as recorded by the Scribe Mily Estrella Provider Scribe Attestation: All medical record entries made by the Scribe were at my direction and pe rsonally dictated by me. I have reviewed the chart and agree that the record accurately reflects my personal performance of the history, physical exam, medical decision making, and the department course for this patient. I have also personally directed, reviewed, and agree with the discharge instructions and disposition. <Abdi Mcrae - Last Filed: 06/22/18 16:34> Disposition/Present on Arrival - Present on Arrival Any Indicators Present on Arrival: No History of DVT/PE: No History of Uncontrolled Diabetes: No Urinary Catheter: No History of Decub. Ulcer: No History Surgical Site Infection Following: None - Disposition Have Diagnosis and Disposition been Completed?: Yes Disposition Time: 11:00 Patient Plan: Discharge <Basil Wright - Last Filed: 06/22/18 13:53> <Abdi Mcrae - Last Filed: 06/22/18 16:34> - Disposition Diagnosis: Viral gastroenteritis Disposition: HOME/ ROUTINE Condition: IMPROVED Discharge Instructions (ExitCare): Viral Gastroenteritis, Adult (DC) Print Language: TRINIDADIAN Additional Instructions: Por favor, va a la clinica de [facility] (Dr. Mcleod) en 2-3 daniels despues de salir de departamento de emergencia. Puede peggy Zofran cada seis horas a necesita para nausea. Puede peggy Pepcid dos veces a renuka para nausea y debra de pablo. Avery tiene symptomas de mas or no mas erick, llama a doctor primaria or va a d epartamento de emergencia de cerca. BENJAMIN NUNES, thank you for letting us take care of you today. Your provider was Abdi Mcrae DO and you were treated for STOMACH PAIN. The emergency medical care you received today was directed at your acute symptoms. If you were prescribed any medication, please fill it and take as directed. It may take several days for your symptoms to resolve. Return to the Emergency Department if your symptoms worsen, do not improve, or if you have any other problems. Please contact your doctor or call one of the physicians/clinics you have been referred to that are listed on the Patient Visit Information form that is included in your discharge packet. Bring any paperwork you were given at discharge with you along with any medications you are taking to your follow up visit. Our treatment cannot replace ongoing medical care by a primary care prov ider outside of the emergency department. Thank you for allowing the [facility] team to be part of your care today. If you had an X-Ray or CT scan: A Radiologist will review the ED reading if any change in treatment is needed we will contact you. If you had a blood, urine, or wound culture: It will take several days for the results, if any change in treatment is needed we will contact you. If you had an STI test: It will take 48 hours for the results. Please call after 1 week if you have not heard back. Prescriptions: Famotidine [Pepcid] 20 mg PO BID #28 tab Ondansetron HCl [Zofran] 4 mg PO Q6H PRN #8 tablet PRN Reason: Nausea/Vomiting Referrals: Jaki Mcleod MD [Family Provider] - Follow up with primary Forms: [employer] (Malaysian)
[2018-06-22 10:14] LABS: BASO # 0.01 K/mm3 (0.0-2.0); BASO % 0.1 % (0.0-3.0); EOS # 0.2 (0.0-0.7); EOS % 1.8 % (1.5-5.0); GRAN # 8.23 (1.4-6.5); GRAN % 80.6 % (50.0-68.0); HEMOGLOBIN 17.3 g/dL (14.0-18.0); LYMPH # 0.8 (1.2-3.4); LYMPH % 7.8 % (22.0-35.0); MEAN CELL VOLUME 89.6 fl (80.0-105.0); MEAN CORPUSCULAR HGB CONC 35.7 g/dl (31.0-37.0); MEAN PLATELET VOLUME 9.2 fl (7.0-11.0); MONO % 9.7 % (1.0-6.0); RBC 5.4 10^6/uL (3.5-6.1); RED CELL DISTRIBUTION WIDTH 13.7 % (11.5-14.5); WHITE BLOOD COUNT 10.2 10^3/uL (4.5-11.0)
[2018-06-22 10:36] LABS: ALB/GLOB RATIO 1.3 (1.1-1.8); ALBUMIN 4.4 g/dL (3.0-4.8); ALT/SGPT 61 U/L (7-56); AST/SGOT 63 U/L (17-59); BLOOD UREA NITROGEN 25 mg/dL (7-21); CALCIUM 8.6 mg/dL (8.4-10.5); GFR NON-AFRICAN AMERICAN > 60
[2018-06-22 11:06] VITALS: BP 99/59; PULSE 76; RESP 16; TEMP 98.3; O2SAT 96
== END 2018-06-22 11:05 | disposition home or self-care (01) ==
LOC: ED 09:06
DX: A08.4 Viral intestinal infection, unspecified (principal)
CPT/HCPCS: 80053; 83735; 85025; 96361; 96374; 96375; 99283; J2405; J7030

== ENCOUNTER 2018-07-31 03:28 | Inpatient (IN) | payer MEDICAID, OTHER ==
[2018-07-31] MEDS: Albuterol-Ipratrop 3 mg / 0.5 (3 ml) UD IH SCH ×5 (03:30→13:22)
--- NOTE | 2018-07-31 03:34 | ED PDOC ---
Arrival/HPI <Abdi Mcrae - Last Filed: 07/31/18 09:15> - General Historian: Patient - History of Present Illness Narrative History of Present Illness (Text): 07/31/18 03:34 Stas Lomax is a 43 year old male, whose past medical history includes asthma and tension pneumothorax, who presents to the Emergency department brought in by EMS for respiratory distress. As per family, patient developed progressively shortness of breath and wheezing. Family states patient used his inhaler at home with no significant relief. Limited HPI and ROS secondary to patient's respiratory distress. Symptom Onset: Gradual Symptom Course: Unchanged Activities at Onset: Light Context: Home <Benji Mccain - Last Filed: 08/03/18 20:19> - General Chief Complaint: Respiratory Distress Time Seen by Provider: 07/31/18 03:33 Past Medical History - Provider Review Nursing Documentation Reviewed: Yes - Infectious Disease Hx of Infectious Diseases: None - Tetanus Immunization Tetanus Immunization: Unknown - Cardiac Hx Cardiac Disorders: No - Pulmonary Hx Respiratory Disorders: Yes Hx Asthma: Yes Other/Comment: PNEUMOTHORAX 2 YRS AGO-TUBE PLACED LEFT SIDE OF LUNG. - Neurological Hx Neurological Disorder: No - HEENT Hx HEENT Disorder: No - Renal Hx Renal Disorder: No - Endocrine/Metabolic Hx Endocrine Disorders: No - Hematological/Oncological Hx Blood Disorders: No - Integumentary Hx Dermatological Disorder: No - Musculoskeletal/Rheumatological Hx Musculoskeletal Disorders: No Hx Falls: No - Gastrointestinal Hx Gastrointestinal Disorders: No - Genitourinary/Gynecological Hx Genitourinary Disorders: No - Psychiatric Hx Psychophysiologic Disorder: No Hx Substance Use: No - Past Surgical History Past Surgical History: No Previous - Surgical History Other/Comment: fluid removed out of chest 2 yrs ago - Anesthesia Hx Anesthesia: Yes Hx Anesthesia Reactions: No Hx Malignant Hyperthermia: No - Suicidal Assessment Feels Threatened In Home Enviroment: No <Benji Mccain - Last Filed: 08/03/18 20:19> Family/Social History - Physician Review Nursing Documentation Reviewed: Yes Family/Social History: Unknown Family HX Smoking Status: Former Smoker Hx Alcohol Use: No Hx Substance Use: No Hx Substance Use Treatment: No <Benji Mccain - Last Filed: 08/03/18 20:19> Allergies/Home Meds <Abdi Mcrae - Last Filed: 07/31/18 09:15> <Benji Mccain - Last Filed: 08/03/18 20:19> Allergies/Adverse Reactions: Allergies No Known Allergies Allergy (Verified 06/22/18 09:16) Review of Systems - Review of Systems Systems not reviewed;Unavailable: Respiratory Distress Respiratory: SOB, Wheezing <Benji Mccain - Last Filed: 08/03/18 20:19> Physical Exam Vital Signs Temp Pulse Resp BP Pulse Ox 07/31/18 07:51 98.4 F 108 H 20 107/61 98 07/31/18 07:26 95 H 18 103/64 100 07/31/18 03:45 99.1 F 07/31/18 03:28 36 H 99 <Abdi Mcrae - Last Filed: 07/31/18 09:15> Vital Signs Reviewed: Yes Temperature: Afebrile Blood Pressure: Normal Pulse: Tachycardic Respiratory Rate: Tachypneic Appearance: Positive for: Non-Toxic Pain Distress: None Mental Status: Positive for: Alert and Oriented X 3 - Systems Exam Head: Present: Atraumatic, Normocephalic Pupils: Present: PERRL Extroacular Muscles: Present: EOMI Conjunctiva: Present: Normal Mouth: Present: Moist Mucous Membranes Neck: Present: Normal Range of Motion Respiratory/Chest: Present: Wheezes (Wheezing bilaterally). No: Accessory Muscle Use Cardiovascular: Present: Regular Rate and Rhythm, Normal S1, S2. No: Murmurs Abdomen: No: Tenderness, Distention, Peritoneal Signs Back: Present: Normal Inspection Upper Extremity: Present: Normal Inspection. No: Cyanosis, Edema Lower Extremity: Present: Normal Inspection. No: Edema Neurological: Present: GCS=15, CN II-XII Intact, Speech Normal Skin: Present: Warm, Dry, Normal Color. No: Rashes Psychiatric: Present: Alert, Oriented x 3, Normal Insight, Normal Concentration <Benji Mccain - Last Filed: 08/03/18 20:19> Medical Decision Making ED Course and Treatment: 07/31/18 09:15 I reevaluated this patient. Lungs are clear. Symptoms improved. Mild shortness of breathe sensation but doesn't feel like he has trouble breathing. HR 110pm. Oxy sat 96% on room air. Discussed with Dr. Nelson and will transfer patient to Med/Surg. - Lab Interpretations Lab Results: pCO2 54 mm/Hg (35-45) H 07/31/18 04:00 pO2 134.0 mm/Hg (80-100) H 07/31/18 04:00 HCO3 25.4 mmol/L (21-28) 07/31/18 04:00 ABG pH 7.28 (7.35-7.45) L 07/31/18 04:00 ABG Total CO2 27.1 mmol.L (22-28) 07/31/18 04:00 ABG O2 Saturation 99.6 % (95-98) H 07/31/18 04:00 ABG O2 Content 21.7 ML/dl (15-23) 07/31/18 04:00 ABG Base Excess -2.4 mmol/L (-2.0-3.0) L 07/31/18 04:00 ABG Hemoglobin 15.8 g/dL (11.7-17.4) 07/31/18 04:00 ABG Carboxyhemoglobin 1.6 % (0.5-1.5) H 07/31/18 04:00 POC ABG HHb (Measured) 0.4 % (0-5) 07/31/18 04:00 ABG Methemoglobin 0.9 % (0.0-3.0) 07/31/18 04:00 ABG O2 Capacity 21.8 mL/dl (16-24) 07/31/18 04:00 Hgb O2 Saturation 97.1 % (95.0-98.0) 07/31/18 04:00 FiO2 100.0 % 07/31/18 04:00 Troponin I < 0.01 ng/mL 07/31/18 03:35 Total Bilirubin 0.5 mg/dL (0.2-1.3) 07/31/18 03:35 AST 53 U/L (17-59) 07/31/18 03:35 ALT 61 U/L (7-56) H 07/31/18 03:35 Alkaline Phosphatase 123 U/L (38-126) 07/31/18 03:35 Total Protein 8.3 g/dL (5.8-8.3) 07/31/18 03:35 Albumin 4.6 g/dL (3.0-4.8) 07/31/18 03:35 Globulin 3.7 gm/dL 07/31/18 03:35 Albumin/Globulin Ratio 1.2 (1.1-1.8) 07/31/18 03:35 - RAD Interpretation Radiology Orders: 07/31/18 03:36 CHEST PORTABLE [RAD] Stat - Medication Orders Current Medication Orders: Albuterol/Ipratropium (Duoneb 3 Mg/0.5 Mg (3 Ml) Ud) 3 ml IH [id number] NANCI Last Admin: 07/31/18 07:33 Dose: 3 ml Albuterol/Ipratropium (Duoneb 3 Mg/0.5 Mg (3 Ml) Ud) 3 ml IH Q2H PRN PRN Reason: Shortness of Breath Famotidine (Pepcid) 20 mg PO BID NANCI Guaifenesin (Robitussin) 200 mg PO Q4H PRN PRN Reason: Cough and congestion Azithromycin (Zithromax 500mg In Ns) 500 mg in 250 mls @ 167 mls/hr IVPB DAILY NANCI; Protocol Methylprednisolone (Solu-Medrol) 60 mg IVP Q12 NANCI Discontinued Medications Albuterol/Ipratropium (Duoneb 3 Mg/0.5 Mg (3 Ml) Ud) 3 ml IH Q15M NANCI Stop: 07/31/18 04:31 Last Admin: 07/31/18 03:56 Dose: 3 ml Albuterol/Ipratropium (Duoneb 3 Mg/0.5 Mg (3 Ml) Ud) 3 ml IH STAT STA Stop: 07/31/18 05:07 Last Admin: 07/31/18 05:06 Dose: 3 ml Magnesium Sulfate/Dextrose (Magnesium Sulfate 1 Gm/100 Ml D5w) 1 gm in 100 mls @ 100 mls/hr IVPB ONCE ONE Stop: 07/31/18 04:48 Last Admin: 07/31/18 04:04 Dose: 100 mls/hr eMAR Start Stop Document 07/31/18 04:04 RD (Rec: 07/31/18 04:04 RD [id number]) Intravenous Solution Start Date 07/31/18 Start Time 04:04 End Date 07/31/18 End time 05:04 Total Infusion Time 60 Ceftriaxone Sodium (Rocephin 1 Gram Ivpb) 1 gm in 100 mls @ 200 mls/hr IVPB STAT STA; Protocol Stop: 07/31/18 05:24 Last Admin: 07/31/18 05:13 Dose: 200 mls/hr eMAR Start Stop Document 07/31/18 05:13 RD (Rec: 07/31/18 05:14 RD [id number]) Intravenous Solution Start Date 07/31/18 Start Time 05:14 End Date 07/31/18 End time 05:44 Total Infusion Time 30 Methylprednisolone (Solu-Medrol) 125 mg IVP ONCE ONE Stop: 07/31/18 03:50 Last Admin: 07/31/18 03:35 Dose: 125 mg IVP Administration Document 07/31/18 03:35 RD (Rec: 07/31/18 04:00 RD [id number]) Charges for Administration # of IVP Administrations 1 <ThorAbdi L - Last Filed: 07/31/18 09:15> ED Course and Treatment: 07/31/18 03:34 Impression: 43 year old male complaining of shortness of breath and wheezing. Plan: -- EKG -- Chest X-ray -- Labs, cardiac enzymes, ABG -- Solu-medrol -- Duoneb -- Magnesium Sulfate -- Reassess and disposition Prior Visits: Notes and results from previous visits were reviewed. Progress Notes: Reviewed EKG, sinus tachycardia at 116 bpm. Non-specific ST/T wave changes. 07/31/18 03:42 Chest X-ray reviewed, shows no acute processes, no pneumothorax. 07/31/18 04:[address] Tong Mcintosh, who is aware and agrees with plan. Accepts pt in to hospitalist service. Pt will be admitted to Telemetry for asthma exacerbation. resident care technician notified. - Lab Interpretations I have reviewed the lab results: Yes - RAD Interpretation Light Rail Signal Technician: ED Physician - EKG Interpretation Interpreted by ED Physician: Yes Type: 12 lead EKG <Benji Mccain - Last Filed: 08/03/18 20:19> - Scribe Statement The provider has reviewed the documentation as recorded by the Pastora Iraheta Provider Scribe Attestation: All medical record entries made by the Scribe were at my direction and personally dictated by me. I have reviewed the chart and agree that the record accurately reflects my personal performance of the history, physical exam, medical decision making, and the department course for this patient. I have also personally directed, reviewed, and agree with the discharge instructions and disposition. <Benji Mccain - Last Filed: 08/03/18 20:19> Disposition/Present on Arrival <Abdi Mcrae - Last Filed: 07/31/18 09:15> - Present on Arrival Any Indicators Present on Arrival: No History of DVT/PE: No History of Uncontrolled Diabetes: No Urinary Catheter: No History of Decub. Ulcer: No History Surgical Site Infection Following: None - Disposition Have Diagnosis and Disposition been Completed?: Yes Disposition Time: 04:50 <Benji Mccain - Last Filed: 08/03/18 20:19> - Disposition Diagnosis: Asthma Disposition: HOSPITALIZED Condition: GOOD
[2018-07-31] MEDS ORDERED: Magnesium Sulfate 1 gm in D5W 1 GM/100 ML BAG IVPB ONE (03:49)
[2018-07-31 04:05] LABS: ALB/GLOB RATIO 1.2 (1.1-1.8); ALBUMIN 4.6 g/dL (3.0-4.8); BLOOD UREA NITROGEN 23 mg/dL (7-21); CALCIUM 8.6 mg/dL (8.4-10.5); GFR NON-AFRICAN AMERICAN > 60
[2018-07-31 04:06] LABS: ARTERIAL BLOOD GAS HCO3 25.4 mmol/L (21-28); ARTERIAL BLOOD GAS HEMOGLOBIN 15.8 g/dL (11.7-17.4); ARTERIAL BLOOD GAS O2 CAPACITY 21.8 mL/dl (16-24); ARTERIAL BLOOD GAS O2 CONTENT 21.7 ML/dl (15-23); ARTERIAL BLOOD GAS O2 SAT 99.6 % (95-98); ARTERIAL BLOOD GAS PCO2 54 mm/Hg (35-45); ARTERIAL BLOOD GAS PH 7.28 (7.35-7.45); ARTERIAL BLOOD GAS TCO2 27.1 mmol.L (22-28)
[2018-07-31 04:16] LABS: TROPONIN I < 0.01 ng/mL
[2018-07-31 04:17] LABS: ALT/SGPT 61 U/L (7-56); AST/SGOT 53 U/L (17-59)
[2018-07-31 04:32] LABS: BASO # 0.04 K/mm3 (0.0-2.0); BASO % 0.3 % (0.0-3.0); EOS # 1.2 (0.0-0.7); EOS % 7.5 % (1.5-5.0); GRAN # 7.44 (1.4-6.5); GRAN % 46.9 % (50.0-68.0); HEMOGLOBIN 16.4 g/dL (14.0-18.0); LYMPH # 6.3 (1.2-3.4); LYMPH % 39.5 % (22.0-35.0); MEAN CELL VOLUME 91.4 fl (80.0-105.0); MEAN CORPUSCULAR HEMOGLOBIN 30.6 pg (25.0-35.0); MEAN CORPUSCULAR HGB CONC 33.5 g/dl (31.0-37.0); MEAN PLATELET VOLUME 9.2 fl (7.0-11.0); MONO # 0.9 (0.1-0.6); MONO % 5.8 % (1.0-6.0); RBC 5.36 10^6/uL (3.5-6.1); RED CELL DISTRIBUTION WIDTH 13.7 % (11.5-14.5); WHITE BLOOD COUNT 15.8 10^3/uL (4.5-11.0)
[2018-07-31] MEDS ORDERED: cefTRIAXone 1 gm 1 GM/100 ML BAG IVPB STA (04:55)
[2018-07-31] MEDS ORDERED: Albuterol-Ipratrop 3 mg / 0.5 (3 ml) UD IH STA (05:06)
[2018-07-31] MEDS ORDERED: Albuterol-Ipratrop 3 mg / 0.5 (3 ml) UD IH PRN (05:08)
--- NOTE | 2018-07-31 05:22 | CP.PCM.HP ---
History of Present Illness - History of Present Illness History of Present Illness: H&P for hospitalist service - Jovana Reyes PGY3 HPI: Patient is a 43yo male with history of asthma (non-steroid dependent, intubated 1x in 2013), hx of pneumomediastinum and left tension pneumothorax post intubation in 2013 that presented with respiratory distress. Per patient, he developed sudden difficulty breathing starting at 2am that did not improve despite use of his inhalers. He reported going to an urgent care approximately e very 2 months for nebulizer treatments/asthma exacerbations as well as daily albuterol use. He reported that his shortness of breath is associated with cough however denied any other respiratory symptoms. Patient denied chest pain, palpitations, fevers, chills, sore throat, sick contacts, recent travel, focal weakness, numbness, tingling. In the ED, patient was placed on nonrebreather and given stat duoneb, solumedrol, mag sulfate and rocephin and reported improvement in his symptoms. 12point ROS as per above otherwise negative PMH: as stated above PSH: left-sided chest tube in 2013 Allergies: KNDA Social Hx: Works as a [employer], denies tobacco, alcohol and illicit drug use; originally from [place] Family Hx: no hx of asthma/respiratory disorders Present on Admission - Present on Admission Any Indicators Present on Admission: No Past Patient History - Infectious Disease Hx of Infectious Diseases: None - Tetanus Immunizations Tetanus Immunization: Unknown - Past Social History Smoking Status: Former Smoker - CARDIAC Hx Cardiac Disorders: No - PULMONARY Hx Respiratory Disorders: Yes Hx Asthma: Yes Other/Comment: PNEUMOTHORAX 2 YRS AGO-TUBE PLACED LEFT SIDE OF LUNG. - NEUROLOGICAL Hx Neurological Disorder: No - HEENT Hx HEENT Problems: No - RENAL Hx Chronic Kidney Disease: No - ENDOCRINE/METABOLIC Hx Endocrine Disorders: No - HEMATOLOGICAL/ONCOLOGICAL Hx Blood Disorders: No - INTEGUMENTARY Hx Dermatological Problems: No - MUSCULOSKELETAL/RHEUMATOLOGICAL Hx Musculoskeletal Disorders: No Hx Falls: No - GASTROINTESTINAL Hx Gastrointestinal Disorders: No - GENITOURINARY/GYNECOLOGICAL Hx Genitourinary Disorders: No - PSYCHIATRIC Hx Psychophysiologic Disorder: No Hx Substance Use: No - SURGICAL HISTORY Other/Comment: fluid removed out of chest 2 yrs ago - ANESTHESIA Hx Anesthesia: Yes Hx Anesthesia Reactions: No Hx Malignant Hyperthermia: No Meds Allergies/Adverse Reactions: Allergies Allergy/AdvReac Type Severity Reaction Status Date / Time No Known Allergies Allergy Verified 06/22/18 09:16 Physical Exam - Constitutional Appears: No Acute Distress - Head Exam Head Exam: ATRAUMATIC, NORMAL INSPECTION, NORMOCEPHALIC - Eye Exam Eye Exam: EOMI, PERRL - ENT Exam ENT Exam: Mucous Membranes Moist - Neck Exam Neck exam: Positive for: Normal Inspection. Negative for: Lymphadenopathy, Tenderness, Thyromegaly - Respiratory Exam Respiratory Exam: Wheezes. absent: Accessory Muscle Use, Clear to Auscultation Bilateral, Rales, Rhonchi - Cardiovascular Exam Cardiovascular Exam: RRR, +S1, +S2. absent: Clicks, Gallop, Rubs - GI/Abdominal Exam GI & Abdominal Exam: Normal Bowel Sounds, Soft. absent: Distended, Firm, Guarding, Rebound, Tenderness - Neurological Exam Neurological exam: Alert, CN II-XII Intact, Oriented x3 - Psychiatric Exam Psychiatric exam: Normal Affect, Normal Mood - Skin Skin Exam: Dry, Intact, Normal Color, Warm Results - Vital Signs Recent Vital Signs: Last Vital Signs Temp Pulse Resp 36 H 07/31/18 03:28 BP Pulse Ox 99 07/31/18 03:28 - Labs Result Diagrams: 07/31/18 03:35 07/31/18 03:35 Labs: Laboratory Results - last 24 hr 07/31/18 07/31/18 07/31/18 03:35 03:35 04:00 WBC 15.8 H D RBC 5.36 Hgb 16.4 Hct 49.0 MCV 91.4 MCH 30.6 MCHC 33.5 RDW 13.7 Plt Count 245 MPV 9.2 Gran % 46.9 L Lymph % (Auto) 39.5 H [place] % (Auto) 5.8 Eos % (Auto) 7.5 H Baso % (Auto) 0.3 Gran # 7.44 H Lymph # (Auto) 6.3 H [place] # (Auto) 0.9 H Eos # (Auto) 1.2 H Baso # (Auto) 0.04 pCO2 54 H pO2 134.0 H HCO3 25.4 ABG pH 7.28 L ABG Total CO2 27.1 ABG O2 Saturation 99.6 H ABG O2 Content 21.7 ABG Base Excess -2.4 L ABG Hemoglobin 15.8 ABG Carboxyhemoglobin 1.6 H POC ABG HHb (Measured) 0.4 ABG Methemoglobin 0.9 ABG O2 Capacity 21.8 Hgb O2 Saturation 97.1 FiO2 100.0 Sodium 142 Potassium 4.3 Chloride 104 Carbon Dioxide 31 Anion Gap 12 BUN 23 H Creatinine 0.7 L Est GFR ( Amer) > 60 Est GFR (Non-Af Amer) > 60 Random Glucose 153 H Calcium 8.6 Magnesium 2.1 Total Bilirubin 0.5 AST 53 ALT 61 H Alkaline Phosphatase 123 Lactate Dehydrogenase 618 Total Creatine Kinase 130 Troponin I < 0.01 Total Protein 8.3 Albumin 4.6 Globulin 3.7 Albumin/Globulin Ratio 1.2 Influenza Typ A,B (EIA) 07/31/18 04:00 WBC RBC Hgb Hct MCV MCH MCHC RDW Plt Count MPV Gran % Lymph % (Auto) [place] % (Auto) Eos % (Auto) Baso % (Auto) Gran # Lymph # (Auto) [place] # (Auto) Eos # (Auto) Baso # (Auto) pCO2 pO2 HCO3 ABG pH ABG Total CO2 ABG O2 Saturation ABG O2 Content ABG Base Excess ABG Hemoglobin ABG Carboxyhemoglobin POC ABG HHb (Measured) ABG Methemoglobin ABG O2 Capacity Hgb O2 Saturation FiO2 Sodium Potassium Chloride Carbon Dioxide Anion Gap BUN Creatinine Est GFR ( Amer) Est GFR (Non-Af Amer) Random Glucose Calcium Magnesium Total Bilirubin AST ALT Alkaline Phosphatase Lactate Dehydrogenase Total Creatine Kinase Troponin I Total Protein Albumin Globulin Albumin/Globulin Ratio Influenza Typ A,B (EIA) Negative for flu a/b Assessment & Plan - Assessment and Plan (Free Text) Plan: 43yo male with history of asthma and tension pneumothorax presents with respiratory distress secondary to asthma exacerbation 1. asthma exacerbation 2. leukocytosis -Patient placed on nonrebreather in the ED -STAT duoneb, solumedrol and mag sulfate administered -Duoneb q4h NANCI and q2h PRN -Solumedrol 60q12h NANCI -panculture -procalcitonin -ABX as ordered pending infectious workup -CXR revealed no active disease or pneumothorax however pending official read -peak flow -pulmonary consult - Dr. Mcintosh -GI/DVT prophylaxis with pepcid/SCD's -post treatment in ED, patient reported improvement in his symptoms and was able to talk in full sentences without accessory muscle use, AOx3, protecting his airway Patient seen and case discussed/reviewed with attending, Dr. Mcintosh
[2018-07-31] MEDS ORDERED: guaiFENesin 200 mg/10 ml Syrup UD PO PRN (05:58)
[2018-07-31] MEDS ORDERED: cefTRIAXone 1 gm 1 GM/100 ML BAG IVPB SCH (10:00)
[2018-07-31] MEDS ORDERED: Azithromycin 500MG/NS 250ml 500 MG/250 ML BAG IVPB SCH (10:00)
--- NOTE | 2018-07-31 10:40 | RAD ---
Date of service: 07/31/2018 HISTORY: sob COMPARISON: 06/07/2018 FINDINGS: LUNGS: No active pulmonary disease. PLEURA: No significant pleural effusion identified, no pneumothorax apparent. CARDIOVASCULAR: No aortic atherosclerotic calcification present. Normal cardiac size. No pulmonary vascular congestion. OSSEOUS STRUCTURES: No significant abnormalities. VISUALIZED UPPER ABDOMEN: Normal. OTHER FINDINGS: None. IMPRESSION: No active disease.
[2018-07-31] MEDS: MethylPREDNISolone 40 mg Vial IVP SCH ×2 (11:17→22:39)
--- NOTE | 2018-07-31 12:35 | CARD ---
APPROVED REPORT Date of service: 07/31/2018 EKG Measurement Heart [id number] <Conclusion> Sinus tachycardia Possible Left atrial enlargement IRBBB, new Baseline artifact
--- NOTE | 2018-07-31 14:01 | CP.PCM.CON ---
History of Present Illness - History of Present Illness History of Present Illness: 43M with hx of asthma, pneumomediastinum and left tension pneumothorax post intubation in 2012 that presented with respiratory distress. SOB began overinight approx 2am that did not improve despite use of his inhalers. He denied chest pain, palpitations, fevers, chills, sore throat, sick contacts, recent travel, focal weakness, numbness, tingling. He was tx in the ED with nebs, mag, solumedrol and abx. He says he is feeling much better now. He had an asthma exasc back in 2015. He then followed up with our pulm clinic with Dr Lin on 07/25/2016 for his asthma but we have not seen him since. At home he is on albuterol neb that he does not require daily. 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 - NEUROLOGICAL Hx Neurological Disorder: No - HEENT Hx HEENT Problems: No - RENAL Hx Chronic Kidney Disease: No - ENDOCRINE/METABOLIC Hx Endocrine Disorders: No - HEMATOLOGICAL/ONCOLOGICAL Hx Blood Disorders: No - INTEGUMENTARY Hx Dermatological Problems: No - MUSCULOSKELETAL/RHEUMATOLOGICAL Hx Musculoskeletal Disorders: No Hx Falls: No - GASTROINTESTINAL Hx Gastrointestinal Disorders: No - GENITOURINARY/GYNECOLOGICAL Hx Genitourinary Disorders: No - PSYCHIATRIC Hx Psychophysiologic Disorder: No Hx Substance Use: No - SURGICAL HISTORY Other/Comment: fluid removed out of chest 2 yrs ago - ANESTHESIA Hx Anesthesia: Yes Hx Anesthesia Reactions: No Hx Malignant Hyperthermia: No Meds Allergies/Adverse Reactions: Allergies Allergy/AdvReac Type Severity Reaction Status Date / Time No Known Allergies Allergy Verified 06/22/18 09:16 - Medications Medications: Current Medications Albuterol/Ipratropium (Duoneb 3 Mg/0.5 Mg (3 Ml) Ud) 3 ml IH [id number] [facility] Last Admin: 07/31/18 13:22 Dose: 3 ml Albuterol/Ipratropium (Duoneb 3 Mg/0.5 Mg (3 Ml) Ud) 3 ml IH Q2H PRN PRN Reason: Shortness of Breath Famotidine (Pepcid) 20 mg PO BID [facility] Last Admin: 07/31/18 11:11 Dose: 20 mg Guaifenesin (Robitussin) 200 mg PO Q4H PRN PRN Reason: Cough and congestion Methylprednisolone (Solu-Medrol) 60 mg IVP Q12 [facility] Last Admin: 07/31/18 11:17 Dose: 60 mg Physical Exam - Constitutional Appears: Well - Head Exam Head Exam: ATRAUMATIC, NORMAL INSPECTION, NORMOCEPHALIC - Eye Exam Eye Exam: EOMI, Normal appearance, PERRL Pupil Exam: NORMAL ACCOMODATION, PERRL - ENT Exam ENT Exam: Mucous Membranes Moist, Normal Exam - Neck Exam Neck exam: Positive for: Normal Inspection - Respiratory Exam Respiratory Exam: Clear to Auscultation Bilateral, NORMAL BREATHING PATTERN - Cardiovascular Exam Cardiovascular Exam: REGULAR RHYTHM - GI/Abdominal Exam GI & Abdominal Exam: Normal Bowel Sounds, Soft. absent: Tenderness - Rectal Exam Rectal Exam: NORMAL INSPECTION - Exam Exam: Circumcision, NORMAL INSPECTION External exam: NORMAL EXTERNAL EXAM Speculum exam: NORMAL SPECULUM EXAM Bimanual exam: NORMAL BIMANUAL EXAM - Extremities Exam Extremities exam: Positive for: normal inspection - Back Exam Back exam: NORMAL INSPECTION - Neurological Exam Neurological exam: Alert, CN II-XII Intact, Normal Gait, Oriented x3, Reflexes Normal - Psychiatric Exam Psychiatric exam: Normal Affect, Normal Mood - Skin Skin Exam: Dry, Intact, Normal Color, Warm Results - Vital Signs Recent Vital Signs: Last Vital Signs Temp 98.0 F 07/31/18 12:49 Pulse 98 H 07/31/18 12:49 Resp 20 07/31/18 13:27 BP 110/67 07/31/18 12:49 Pulse Ox 99 07/31/18 13:27 - Labs Result Diagrams: 07/31/18 03:35 07/31/18 03:35 Labs: Laboratory Results - last 24 hr 07/31/18 07/31/18 07/31/18 03:35 03:35 04:00 WBC 15.8 H D RBC 5.36 Hgb 16.4 Hct 49.0 MCV 91.4 MCH 30.6 MCHC 33.5 RDW 13.7 Plt Count 245 MPV 9.2 Gran % 46.9 L Lymph % (Auto) 39.5 H [place] % (Auto) 5.8 Eos % (Auto) 7.5 H Baso % (Auto) 0.3 Gran # 7.44 H Lymph # (Auto) 6.3 H [place] # (Auto) 0.9 H Eos # (Auto) 1.2 H Baso # (Auto) 0.04 pCO2 54 H pO2 134.0 H HCO3 25.4 ABG pH 7.28 L ABG Total CO2 27.1 ABG O2 Saturation 99.6 H ABG O2 Content 21.7 ABG Base Excess -2.4 L ABG Hemoglobin 15.8 ABG Carboxyhemoglobin 1.6 H POC ABG HHb (Measured) 0.4 ABG Methemoglobin 0.9 ABG O2 Capacity 21.8 Hgb O2 Saturation 97.1 FiO2 100.0 Sodium 142 Potassium 4.3 Chloride 104 Carbon Dioxide 31 Anion Gap 12 BUN 23 H Creatinine 0.7 L Est GFR ( Amer) > 60 Est GFR (Non-Af Amer) > 60 Random Glucose 153 H Lactic Acid Calcium 8.6 Magnesium 2.1 Total Bilirubin 0.5 AST 53 ALT 61 H Alkaline Phosphatase 123 Lactate Dehydrogenase 618 Total Creatine Kinase 130 Troponin I < 0.01 Total Protein 8.3 Albumin 4.6 Globulin 3.7 Albumin/Globulin Ratio 1.2 Influenza Typ A,B (EIA) 07/31/18 07/31/18 04:00 05:40 WBC RBC Hgb Hct MCV MCH MCHC RDW Plt Count MPV Gran % Lymph % (Auto) [place] % (Auto) Eos % (Auto) Baso % (Auto) Gran # Lymph # (Auto) [place] # (Auto) Eos # (Auto) Baso # (Auto) pCO2 pO2 HCO3 ABG pH ABG Total CO2 ABG O2 Saturation ABG O2 Content ABG Base Excess ABG Hemoglobin ABG Carboxyhemoglobin POC ABG HHb (Measured) ABG Methemoglobin ABG O2 Capacity Hgb O2 Saturation FiO2 Sodium Potassium Chloride Carbon Dioxide Anion Gap BUN Creatinine Est GFR ( Amer) Est GFR (Non-Af Amer) Random Glucose Lactic Acid 2.1 Calcium Magnesium Total Bilirubin AST ALT Alkaline Phosphatase Lactate Dehydrogenase Total Creatine Kinase Troponin I Total Protein Albumin Globulin Albumin/Globulin Ratio Influenza Typ A,B (EIA) Negative for flu a/b Assessment & Plan - Assessment and Plan (Free Text) Assessment: 43m never smoker with hx of asthma admitted with asthma exasc. Unclear etiology however clinically much better. This exasc was severe given his elevated pCO2 on ABG which suggest resp fatigue. His CXR showed hyperinflation. His labs showed leukocytosis with eosinophilia. Unclear what his triggers are however for now: -cont 02 to keep sat > 92% -cont standing albuterol q 6 hours (does not need duoneb) -ok to cont Solumedrol 60q12h NANCI -Follow up panculture and procalcitonin -ABX as ordered -peak flow q 8 hours -check IgE Will cont to follow with you eventually will need outpatient follow up including repeat PFTs and asthma workup Dequan Mcintosh MD Pulmonary
[2018-07-31 16:57] LABS: URINE BILIRUBIN NEGATIVE (NEGATIVE); URINE BLOOD NEGATIVE (NEGATIVE); URINE GLUCOSE (UA) 500 mg/dL (NEGATIVE); URINE LEUKOCYTE ESTERASE NEGATIVE Leu/uL (NEGATIVE); URINE PROTEIN NEGATIVE mg/dL (<30 mg/dL); URINE UROBILINOGEN 0.2 E.U./dL (<1 E.U./dL)
[2018-07-31 16:59] LABS: URINE APPEARANCE CLEAR (CLEAR); URINE COLOR YELLOW (YELLOW)
[2018-07-31 22:43] VITALS: BMI 21.2
[2018-07-31] MEDS ORDERED: Pneumococcal 23-Valent Vaccine IM ONE (22:43)
[2018-07-31] MEDS ORDERED: Influenza Vaccine 60 mcg/0.5 mL SYR (4YR UP) IM ONE (22:43)
[2018-08-01] MEDS: Albuterol 0.5% Inhal Sol (2.5 mg/0.5 ml) UD IH SCH (02:42)
[2018-08-01 06:52] LABS: GRAN # 17.62 (1.4-6.5); GRAN % 92.2 % (50.0-68.0); HEMOGLOBIN 14.4 g/dL (14.0-18.0); MEAN CELL VOLUME 90.3 fl (80.0-105.0); MEAN CORPUSCULAR HEMOGLOBIN 29.8 pg (25.0-35.0); MONO # 0.5 (0.1-0.6); MONO % 2.8 % (1.0-6.0); PLATELET COUNT 224 10^3/uL (120.0-450.0); RBC 4.83 10^6/uL (3.5-6.1); RED CELL DISTRIBUTION WIDTH 13.7 % (11.5-14.5); WHITE BLOOD COUNT 19.1 10^3/uL (4.5-11.0)
[2018-08-01 07:19] LABS: ALB/GLOB RATIO 1.2 (1.1-1.8); ALBUMIN 3.9 g/dL (3.0-4.8); ALT/SGPT 47 U/L (7-56); AST/SGOT 29 U/L (17-59); BLOOD UREA NITROGEN 19 mg/dL (7-21); CALCIUM 9.1 mg/dL (8.4-10.5); GFR NON-AFRICAN AMERICAN > 60
[2018-08-01] MEDS: MethylPREDNISolone 40 mg Vial IVP SCH ×2 (09:26→21:19)
[2018-08-01 10:09] LABS: BAND 1 % (0-2); LYMPHOCYTE 5 % (22.0-35.0); MONOCYTE 4 % (1.0-6.0); MYELOCYTE 1 %; NEUTROPHIL 89 % (50.0-70.0); PLATELET ESTIMATE NORMAL (NORMAL)
[2018-08-01] MEDS: levoFLOXacin 500 MG TAB PO SCH (12:39)
--- NOTE | 2018-08-01 12:47 | CP.PCM.PN ---
<Maranda Love - Last Filed: 08/01/18 17:25> Subjective - Date & Time of Evaluation Date of Evaluation: 08/01/18 Time of Evaluation: 12:47 - Subjective Subjective: Maranda Love, PGY2, Medicine Progress Note for Dr Nelson: Patient seen and examined at bedside. No acute events overnight. Patient states that his shortness of breath has improved. Denies chest pain, nausea, vomiting, fevers, chills, abdominal pain, dysuria. Patient out of bed to chair, tolerating ambulation well, no supplemental oxygen needed. Objective - Vital Signs/Intake and Output Vital Signs (last 24 hours): Temp Pulse Resp BP Pulse Ox 98 F 70 20 97/54 L 92 L 08/01/18 06:00 08/01/18 06:00 08/01/18 06:00 08/01/18 06:00 08/01/18 06:00 - Medications Medications: Current Medications Albuterol Sulfate (Albuterol 0.5% Inhal Sienna (2.5 Mg/0.5 Ml) Ud) 2.5 mg IH [id number] [facility] Last Admin: 08/01/18 02:42 Dose: 2.5 mg Albuterol/Ipratropium (Duoneb 3 Mg/0.5 Mg (3 Ml) Ud) 3 ml IH Q2H PRN PRN Reason: Shortness of Breath Famotidine (Pepcid) 20 mg PO BID [facility] Last Admin: 08/01/18 09:26 Dose: 20 mg Guaifenesin (Robitussin) 200 mg PO Q4H PRN PRN Reason: Cough and congestion Levofloxacin (Levaquin) 500 mg PO DAILY [facility]; Protocol Last Admin: 08/01/18 12:39 Dose: 500 mg Methylprednisolone (Solu-Medrol) 40 mg IVP Q12 [facility] - Labs Labs: 08/01/18 05:30 08/01/18 05:30 - Constitutional Appears: Non-toxic, No Acute Distress - Head Exam Head Exam: ATRAUMATIC, NORMOCEPHALIC - Eye Exam Eye Exam: EOMI, PERRL. absent: Conjunctival injection, Nystagmus, Scleral icterus Pupil Exam: NORMAL ACCOMODATION, PERRL. absent: Irregular, Miosis, Mydriatic - ENT Exam ENT Exam: Mucous Membranes Moist - Neck Exam Neck Exam: Full ROM - Respiratory Exam Respiratory Exam: Clear to Ausculation Bilateral, NORMAL BREATHING PATTERN. absent: Accessory Muscle Use, Chest Wall Tenderness, Respiratory Distress, Stridor - Cardiovascular Exam Cardiovascular Exam: RRR, +S1, +S2. absent: Murmur - GI/Abdominal Exam GI & Abdominal Exam: Soft, Normal Bowel Sounds. absent: Guarding, Rigid, Tenderness, Organomegaly - Extremities Exam Extremities Exam: Full ROM, Normal Inspection. absent: Calf Tenderness, Pedal Edema - Back Exam Back Exam: NORMAL INSPECTION - Neurological Exam Neurological Exam: Alert, Awake, Normal Gait, Oriented x3 - Psychiatric Exam Psychiatric exam: Normal Affect, Normal Mood - Skin Skin Exam: Dry, Normal Color, Warm Assessment and Plan - Assessment and Plan (Free Text) Assessment: 43 year old male with history of asthma (requiring intubation), tension pneumothorax, presents for asthma exacerbation: Asthma exacerbation: - ABG showed CO2 retention - high dose solumedrol initiated, will taper down to 40 mg IV q 12 - albuterol taurus and prn - robitussin - procal 0.50, leukocytosis 15.5 on admission - will add levaquin for CAP coverage - Admission CXR negative for infiltrates - improved lung exam today - Pulmonary on board. appreciate recs. recommends outpatient follow up with pulm clinic at [facility] outpatient. - IgE level 503 in 2013, f/u level this admission - Hgb A1c 5.6 - monitor PPX: Pepcid Patient will follow up with Dr Mcleod at [facility] clinic upon discharge. Case seen and discussed with attending, Dr Nelson. <Ihsan Nelson - Last Filed: 08/01/18 17:52> Objective - Vital Signs/Intake and Output Vital Signs (last 24 hours): Temp Pulse Resp BP Pulse Ox 98.4 F 72 18 107/69 93 L 08/01/18 14:00 08/01/18 14:00 08/01/18 14:00 08/01/18 14:00 08/01/18 14:00 - Medications Medications: Current Medications Albuterol Sulfate (Albuterol 0.5% Inhal Sienna (2.5 Mg/0.5 Ml) Ud) 2.5 mg IH [id number] [facility] Last Admin: 08/01/18 02:42 Dose: 2.5 mg Albuterol Sulfate (Albuterol 0.5% Inhal Sienna (2.5 Mg/0.5 Ml) Ud) 2.5 mg IH Q4 PRN PRN Reason: Wheezing Famotidine (Pepcid) 20 mg PO BID [facility] Last Admin: 08/01/18 17:20 Dose: 20 mg Guaifenesin (Robitussin) 200 mg PO Q4H PRN PRN Reason: Cough and congestion Levofloxacin (Levaquin) 500 mg PO DAILY [facility]; Protocol Last Admin: 08/01/18 12:39 Dose: 500 mg Methylprednisolone (Solu-Medrol) 40 mg IVP Q12 [facility] - Labs Labs: 08/01/18 05:30 08/01/18 05:30 Attending/Attestation - Attestation I have personally seen and examined this patient.: Yes I have fully participated in the care of the patient.: Yes I have reviewed all pertinent clinical information, including history, physical exam and plan: Yes Notes (Text): 08/01/18 17:48 43 year old male with past medical history of asthma and medical noncompliance presented with shortness of breath secondary to asthma exacerbation. Symptoms are improving on tapering iv steroids and albuterol. He is also on levaquin. Pulmonary is following. Leukocytosis likely secondary to iv steroids. Patient will need outpatient pulmonary follow up upon discharge. Issue of medication compliance and outpatient follow up were discussed with the patient. Ihsan Nelson MD Hospitalist.
--- NOTE | 2018-08-01 15:43 | CP.PCM.PN ---
Subjective - Date & Time of Evaluation Date of Evaluation: 08/01/18 Time of Evaluation: 10:00 - Subjective Subjective: patient feeling much better no sob no wheezing no fevers no cough Objective - Vital Signs/Intake and Output Vital Signs (last 24 hours): Temp Pulse Resp BP Pulse Ox 98.4 F 72 18 107/69 93 L 08/01/18 14:00 08/01/18 14:00 08/01/18 14:00 08/01/18 14:00 08/01/18 14:00 - Medications Medications: Current Medications Albuterol Sulfate (Albuterol 0.5% Inhal Sienna (2.5 Mg/0.5 Ml) Ud) 2.5 mg IH [id number] [facility] Last Admin: 08/01/18 02:42 Dose: 2.5 mg Albuterol/Ipratropium (Duoneb 3 Mg/0.5 Mg (3 Ml) Ud) 3 ml IH Q2H PRN PRN Reason: Shortness of Breath Famotidine (Pepcid) 20 mg PO BID [facility] Last Admin: 08/01/18 09:26 Dose: 20 mg Guaifenesin (Robitussin) 200 mg PO Q4H PRN PRN Reason: Cough and congestion Levofloxacin (Levaquin) 500 mg PO DAILY [facility]; Protocol Last Admin: 08/01/18 12:39 Dose: 500 mg Methylprednisolone (Solu-Medrol) 40 mg IVP Q12 [facility] - Labs Labs: 08/01/18 05:30 08/01/18 05:30 - Constitutional Appears: Well - Head Exam Head Exam: ATRAUMATIC, NORMAL INSPECTION, NORMOCEPHALIC - Eye Exam Eye Exam: EOMI, Normal appearance, PERRL Pupil Exam: NORMAL ACCOMODATION, PERRL - ENT Exam ENT Exam: Mucous Membranes Moist, Normal Exam - Neck Exam Neck Exam: Full ROM, Normal Inspection. absent: Lymphadenopathy - Respiratory Exam Respiratory Exam: Clear to Ausculation Bilateral, NORMAL BREATHING PATTERN - Cardiovascular Exam Cardiovascular Exam: REGULAR RHYTHM, +S1, +S2. absent: Murmur - GI/Abdominal Exam GI & Abdominal Exam: Soft, Normal Bowel Sounds. absent: Tenderness - Rectal Exam Rectal Exam: NORMAL INSPECTION - Exam Exam: Circumcision, NORMAL INSPECTION External exam: NORMAL EXTERNAL EXAM Speculum exam: NORMAL SPECULUM EXAM Bimanual exam: NORMAL BIMANUAL EXAM - Extremities Exam Extremities Exam: Full ROM, Normal Capillary Refill, Normal Inspection. absent: Joint Swelling, Pedal Edema - Back Exam Back Exam: NORMAL INSPECTION - Neurological Exam Neurological Exam: Alert, Awake, CN II-XII Intact, Normal Gait, Oriented x3 - Psychiatric Exam Psychiatric exam: Normal Affect, Normal Mood - Skin Skin Exam: Dry, Intact, Normal Color, Warm Assessment and Plan - Assessment and Plan (Free Text) Assessment: 43m never smoker with hx of asthma admitted with asthma exasc. Unclear etiology however clinically much better. This exasc was severe given his elevated pCO2 on ABG which suggest resp fatigue. His CXR showed hyperinflation. His labs showed leukocytosis with eosinophilia. Unclear what his triggers are -no pets at home - no known allergies - no smoking hx Stable at this point off oxygen prepping for discharge -should rec'd rx for albuterol for his nebulizer as well as Symbicort inhaler to be take BID - rx pred taper, 50mg po x1 then 40mg x 1 day and cont to decr by 10 per day then stop. -procal elevated, should complete course of abx for CAP - f/u check IgE Appointment for f/u with me in Pulm Clinic for Sep 04 9:30am will need outpatient PFTs and asthma workup Dequan Mcintosh MD Pulmonary
[2018-08-01] MEDS ORDERED: Albuterol 0.5% Inhal Sol (2.5 mg/0.5 ml) UD IH PRN (17:30)
[2018-08-02] MEDS: Albuterol 0.5% Inhal Sol (2.5 mg/0.5 ml) UD IH SCH ×3 (02:39→13:09)
[2018-08-02 06:53] LABS: GRAN # 15.89 (1.4-6.5); GRAN % 91.6 % (50.0-68.0); HEMOGLOBIN 14.9 g/dL (14.0-18.0); LYMPH % 5.8 % (22.0-35.0); MEAN CORPUSCULAR HEMOGLOBIN 29.9 pg (25.0-35.0); MEAN CORPUSCULAR HGB CONC 33.3 g/dl (31.0-37.0); MEAN PLATELET VOLUME 9.2 fl (7.0-11.0); MONO # 0.5 (0.1-0.6); MONO % 2.6 % (1.0-6.0); RBC 4.98 10^6/uL (3.5-6.1); RED CELL DISTRIBUTION WIDTH 13.7 % (11.5-14.5); WHITE BLOOD COUNT 17.3 10^3/uL (4.5-11.0)
[2018-08-02 07:43] LABS: ALB/GLOB RATIO 1.3 (1.1-1.8); ALBUMIN 3.9 g/dL (3.0-4.8); ALT/SGPT 75 U/L (7-56); AST/SGOT 41 U/L (17-59); BLOOD UREA NITROGEN 19 mg/dL (7-21); CALCIUM 9.1 mg/dL (8.4-10.5); GFR NON-AFRICAN AMERICAN > 60
[2018-08-02] MEDS: MethylPREDNISolone 40 mg Vial IVP SCH (11:53)
[2018-08-02] MEDS: levoFLOXacin 500 MG TAB PO SCH (11:58)
--- NOTE | 2018-08-02 13:02 | CP.PCM.DIS ---
<Maranda Love - Last Filed: 08/02/18 17:54> Provider - Provider Date of Admission: 07/31/18 04:48 Attending physician: Ihsan Nelson MD Consults: 07/31/18 05:26 Consult [Physician Consult] Routine Comment: Consulting Provider: Dequan Mcintosh Consulting Physician: Dequan Mcintosh Reason for Consult: asthma exacerbation 07/31/18 22:43 Inpatient [employer] Measures Referral Routine Comment: asthma Physician Instructions: Reason For Exam: eval Transition In Care/Readmission Reduction Routine Comment: asthma Physician Instructions: Reason For Exam: eval Time Spent in preparation of Discharge (in minutes): 55 Diagnosis - Discharge Diagnosis (1) Asthma exacerbation Status: Acute (2) Community acquired pneumonia Status: Acute Hospital Course - Lab Results Lab Results: Micro Results 07/31/18 05:20 Blood-Venous Blood Culture - Preliminary NO GROWTH AFTER 48 HOURS 07/31/18 05:00 Blood-Venous Blood Culture - Preliminary NO GROWTH AFTER 48 HOURS 07/31/18 16:40 Urine Random Urine Culture - Final No Growth (<1,000 CFU/ML) Most Recent Lab Values WBC 17.3 10^3/uL (4.5-11.0) H 08/02/18 06:20 RBC 4.98 10^6/uL (3.5-6.1) 08/02/18 06:20 Hgb 14.9 g/dL (14.0-18.0) 08/02/18 06:20 Hct 44.8 % (42.0-52.0) 08/02/18 06:20 MCV 90.0 fl (80.0-105.0) 08/02/18 06:20 MCH 29.9 pg (25.0-35.0) 08/02/18 06:20 MCHC 33.3 g/dl (31.0-37.0) 08/02/18 06:20 RDW 13.7 % (11.5-14.5) 08/02/18 06:20 Plt Count 242 10^3/uL (120.0-450.0) 08/02/18 06:20 MPV 9.2 fl (7.0-11.0) 08/02/18 06:20 Gran % 91.6 % (50.0-68.0) H 08/02/18 06:20 Lymph % (Auto) 5.8 % (22.0-35.0) L 08/02/18 06:20 Mcleod % (Auto) 2.6 % (1.0-6.0) 08/02/18 06:20 Eos % (Auto) 0.0 % (1.5-5.0) L 08/02/18 06:20 Baso % (Auto) 0.0 % (0.0-3.0) 08/02/18 06:20 Gran # 15.89 (1.4-6.5) H 08/02/18 06:20 Lymph # (Auto) 1.0 (1.2-3.4) L 08/02/18 06:20 Mcleod # (Auto) 0.5 (0.1-0.6) 08/02/18 06:20 Eos # (Auto) 0.0 (0.0-0.7) 08/02/18 06:20 Baso # (Auto) 0.00 K/mm3 (0.0-2.0) 08/02/18 06:20 Neutrophils % (Manual) 89 % (50.0-70.0) H 08/01/18 05:30 Band Neutrophils % 1 % (0-2) 08/01/18 05:30 Lymphocytes % (Manual) 5 % (22.0-35.0) L 08/01/18 05:30 Monocytes % (Manual) 4 % (1.0-6.0) 08/01/18 05:30 Myelocytes % 1 % 08/01/18 05:30 Platelet Evaluation Normal (NORMAL) 08/01/18 05:30 pCO2 54 mm/Hg (35-45) H 07/31/18 04:00 pO2 134.0 mm/Hg (80-100) H 07/31/18 04:00 HCO3 25.4 mmol/L (21-28) 07/31/18 04:00 ABG pH 7.28 (7.35-7.45) L 07/31/18 04:00 ABG Total CO2 27.1 mmol.L (22-28) 07/31/18 04:00 ABG O2 Saturation 99.6 % (95-98) H 07/31/18 04:00 ABG O2 Content 21.7 ML/dl (15-23) 07/31/18 04:00 ABG Base Excess -2.4 mmol/L (-2.0-3.0) L 07/31/18 04:00 ABG Hemoglobin 15.8 g/dL (11.7-17.4) 07/31/18 04:00 ABG Carboxyhemoglobin 1.6 % (0.5-1.5) H 07/31/18 04:00 POC ABG HHb (Measured) 0.4 % (0-5) 07/31/18 04:00 ABG Methemoglobin 0.9 % (0.0-3.0) 07/31/18 04:00 ABG O2 Capacity 21.8 mL/dl (16-24) 07/31/18 04:00 Hgb O2 Saturation 97.1 % (95.0-98.0) 07/31/18 04:00 FiO2 100.0 % 07/31/18 04:00 Sodium 141 mmol/L (132-148) 08/02/18 06:20 Potassium 4.2 mmol/L (3.6-5.0) 08/02/18 06:20 Chloride 106 mmol/L (98-107) 08/02/18 06:20 Carbon Dioxide 27 mmol/L (21-33) 08/02/18 06:20 Anion Gap 11 (10-20) 08/02/18 06:20 BUN 19 mg/dL (7-21) 08/02/18 06:20 Creatinine 0.7 mg/dl (0.8-1.5) L 08/02/18 06:20 Est GFR ( Amer) > 60 08/02/18 06:20 Est GFR (Non-Af Amer) > 60 08/02/18 06:20 Random Glucose 127 mg/dL (70-110) H 08/02/18 06:20 Hemoglobin A1c 5.6 % (4.2-6.5) 08/01/18 12:49 Lactic Acid 2.1 mmol/L (0.7-2.1) 07/31/18 05:40 Calcium 9.1 mg/dL (8.4-10.5) 08/02/18 06:20 Phosphorus 3.7 mg/dL (2.5-4.5) 08/01/18 05:30 Magnesium 2.3 mg/dL (1.7-2.2) H 08/01/18 05:30 Total Bilirubin 0.5 mg/dL (0.2-1.3) 08/02/18 06:20 AST 41 U/L (17-59) 08/02/18 06:20 ALT 75 U/L (7-56) H 08/02/18 06:20 Alkaline Phosphatase 75 U/L (38-126) 08/02/18 06:20 Lactate Dehydrogenase 618 U/L (333-699) 07/31/18 03:35 Total Creatine Kinase 130 U/L (35-230) 07/31/18 03:35 Troponin I < 0.01 ng/mL 07/31/18 03:35 Total Protein 7.0 g/dL (5.8-8.3) 08/02/18 06:20 Albumin 3.9 g/dL (3.0-4.8) 08/02/18 06:20 Globulin 3.0 gm/dL 08/02/18 06:20 Albumin/Globulin Ratio 1.3 (1.1-1.8) 08/02/18 06:20 Procalcitonin < 0.50 NG/ML (0.19-0.49) H 07/31/18 03:35 Urine Color Yellow (YELLOW) 07/31/18 16:40 Urine Appearance Clear (CLEAR) 07/31/18 16:40 Urine pH 6.0 (4.7-8.0) 07/31/18 16:40 Ur Specific Tillson >= 1.030 (1.005-1.035) 07/31/18 16:40 Urine Protein Negative mg/dL (<30 mg/dL) 07/31/18 16:40 Urine Glucose (UA) 500 mg/dL (NEGATIVE) H 07/31/18 16:40 Urine Ketones Negative mg/dL (NEGATIVE) 07/31/18 16:40 Urine Blood Negative (NEGATIVE) 07/31/18 16:40 Urine Nitrate Negative (NEGATIVE) 07/31/18 16:40 Urine Bilirubin Negative (NEGATIVE) 07/31/18 16:40 Urine Urobilinogen 0.2 E.U./dL (<1 E.U./dL) 07/31/18 16:40 Ur Leukocyte Esterase Negative Rashawn/uL (NEGATIVE) 07/31/18 16:40 Influenza Typ A,B (EIA) Negative for flu a/b (NEGATIVE) 07/31/18 04:00 - Hospital Course Hospital Course: This is a 43 year old male with history of asthma (non-steroid dependent, intubated 1x in 2013), hx of pneumomediastinum and left tension pneumothorax post intubation in 2013, that presented with respiratory distress. Per patient, he developed sudden difficulty breathing starting at 2am that did not improve despite use of his inhalers. He reported going to an urgent care approximately every 2 months for nebulizer treatments/asthma exacerbations as well as daily albuterol use. He reported that his shortness of breath is associated with cough however denied any other respiratory symptoms. Patient admitted for asthma exacerbation, started on high dose IV steroids, albuterol nebulizers, procal noted to be 0.50, started on levaquin. CXR neg for significant infiltrates. Pulmonary consulted, who recommended outpatient follow up at Pulmonary clinic for PFTs and further workup. Patient's IgE level was elevated at 651. Over the course of two days, patient's breathing significantly improved and steroids were tapered down. Patient was ambulating well in hallway without oxygen. Patient discharged home on tapering dose of steroids, Albuterol inhaler, levaquin. Pulmonary recommended Symbicort inhaler BID. However, after speaking with outpatient pharmacist Hadley, it was determined that it will not be covered under his insurance. The only options available are Asmanex and Anoro, which Hadley took a telephone order and gave it to patient. Patient also given tapering dose of Prednisone, patient explained the above instructions in Niuean. Case seen and discussed with Dr Nelson. Discharge Exam - Head Exam Head Exam: ATRAUMATIC, NORMOCEPHALIC - Eye Exam Eye Exam: EOMI, PERRL. absent: Conjunctival injection, Nystagmus, Scleral icterus Pupil Exam: NORMAL ACCOMODATION, PERRL. absent: Irregular, Miosis, Unequal - ENT Exam ENT Exam: Mucous Membranes Moist - Neck Exam Neck exam: Full Rom - Respiratory Exam Respiratory Exam: Clear to PA & Lateral, NORMAL BREATHING PATTERN. absent: Chest Wall Tenderness, Rales, Rhonchi, Wheezes, Respiratory Distress, Stridor - Cardiovascular Exam Cardiovascular Exam: RRR, +S1, +S2. absent: Systolic Murmur - GI/Abdominal Exam GI & Abdominal Exam: Normal Bowel Sounds, Soft. absent: Distended, Firm, G uarding, Hypoactive Bowel Sounds, Organomegaly, Rebound, Tenderness - Extremities Exam Extremities exam: normal inspection - Back Exam Back exam: NORMAL INSPECTION - Neurological Exam Neurological exam: Alert, Oriented x3 - Psychiatric Exam Psychiatric exam: Normal Affect, Normal Mood - Skin Skin Exam: Dry, Normal Color, Warm Discharge Plan - Discharge Medications Prescriptions: Albuterol HFA [Ventolin HFA 90 mcg/actuation (8 g)] 2 puff IH [id number] PRN #2 inhaler PRN Reason: Cough Famotidine [Pepcid] 20 mg PO BID #60 tab levoFLOXacin [Levaquin] 750 mg PO DAILY #4 tab predniSONE [predniSONE Tab] 10 mg PO DAILY #22 tab - Follow Up Plan Condition: GOOD Disposition: HOME/ ROUTINE Instructions: Asthma, Adult (DC), Avoiding Asthma Triggers, Asthma Action Plan Additional Instructions: Follow up with your primary care doctor, Dr. Mcleod, at [facility] clinic on WEDNESDAY August 08, 2018, at 1 PM. Follow up at the lung doctor clinic at [facility] on SundaySeptember 04 at 9:30am. Take Prednisone as directed: 50 mg (five 10 mg tablets) for one day -> then take 40 mg (four 10 mg tablets) the next day -> then take 30 mg (three 10 mg tablets) for two days -> then take 20 mg (two 10 mg tablets) for two days -> then take 10 mg (one 10 mg tablet) for two days. After that, you can stop. Take other medications as directed as well: Ventolin inhaler 1 puff every 6hrs NEEDED FOR SHORTNESS OF BREATH Anoro 1 puff inhaled every day. Asmanex 1 puff every 12 HOURS every day Levaquin 500 mg 1 tablet daily. Follow up for blood test results, IgE levels, at neighborhood clinic at [facility]. If your symptoms return, please go to the nearest emergency department. Referrals: [facility] at [facility] [Outside] Dequan Mcintosh MD [Staff Provider] - Jaki Mcleod MD [Medical Doctor] - <Ihsan Nelson - Last Filed: 08/03/18 10:45> Provider - Provider Date of Admission: 07/31/18 04:48 Attending physician: Ihsan Nelson MD Consults: 07/31/18 05:26 Consult [Physician Consult] Routine Comment: Consulting Provider: Dequan Mcintosh Consulting Physician: Dequan Mcintosh Reason for Consult: asthma exacerbation 07/31/18 22:43 Inpatient [employer] Core Measures Referral Routine Comment: asthma Physician Instructions: Reason For Exam: eval Transition In Care/Readmission Reduction Routine Comment: asthma Physician Instructions: Reason For Exam: eval Hospital Course - Lab Results Lab Results: Micro Results 07/31/18 05:20 Blood-Venous Blood Culture - Preliminary NO GROWTH AFTER 3 DAYS 07/31/18 05:00 Blood-Venous Blood Culture - Preliminary NO GROWTH AFTER 3 DAYS 07/31/18 16:40 Urine Random Urine Culture - Final No Growth (<1,000 CFU/ML) Most Recent Lab Values WBC 17.3 10^3/uL (4.5-11.0) H 08/02/18 06:20 RBC 4.98 10^6/uL (3.5-6.1) 08/02/18 06:20 Hgb 14.9 g/dL (14.0-18.0) 08/02/18 06:20 Hct 44.8 % (42.0-52.0) 08/02/18 06:20 MCV 90.0 fl (80.0-105.0) 08/02/18 06:20 MCH 29.9 pg (25.0-35.0) 08/02/18 06:20 MCHC 33.3 g/dl (31.0-37.0) 08/02/18 06:20 RDW 13.7 % (11.5-14.5) 08/02/18 06:20 Plt Count 242 10^3/uL (120.0-450.0) 08/02/18 06:20 MPV 9.2 fl (7.0-11.0) 08/02/18 06:20 Gran % 91.6 % (50.0-68.0) H 08/02/18 06:20 Lymph % (Auto) 5.8 % (22.0-35.0) L 08/02/18 06:20 Mcleod % (Auto) 2.6 % (1.0-6.0) 08/02/18 06:20 Eos % (Auto) 0.0 % (1.5-5.0) L 08/02/18 06:20 Baso % (Auto) 0.0 % (0.0-3.0) 08/02/18 06:20 Gran # 15.89 (1.4-6.5) H 08/02/18 06:20 Lymph # (Auto) 1.0 (1.2-3.4) L 08/02/18 06:20 Mcleod # (Auto) 0.5 (0.1-0.6) 08/02/18 06:20 Eos # (Auto) 0.0 (0.0-0.7) 08/02/18 06:20 Baso # (Auto) 0.00 K/mm3 (0.0-2.0) 08/02/18 06:20 Neutrophils % (Manual) 89 % (50.0-70.0) H 08/01/18 05:30 Band Neutrophils % 1 % (0-2) 08/01/18 05:30 Lymphocytes % (Manual) 5 % (22.0-35.0) L 08/01/18 05:30 Monocytes % (Manual) 4 % (1.0-6.0) 08/01/18 05:30 Myelocytes % 1 % 08/01/18 05:30 Platelet Evaluation Normal (NORMAL) 08/01/18 05:30 pCO2 54 mm/Hg (35-45) H 07/31/18 04:00 pO2 134.0 mm/Hg (80-100) H 07/31/18 04:00 HCO3 25.4 mmol/L (21-28) 07/31/18 04:00 ABG pH 7.28 (7.35-7.45) L 07/31/18 04:00 ABG Total CO2 27.1 mmol.L (22-28) 07/31/18 04:00 ABG O2 Saturation 99.6 % (95-98) H 07/31/18 04:00 ABG O2 Content 21.7 ML/dl (15-23) 07/31/18 04:00 ABG Base Excess -2.4 mmol/L (-2.0-3.0) L 07/31/18 04:00 ABG Hemoglobin 15.8 g/dL (11.7-17.4) 07/31/18 04:00 ABG Carboxyhemoglobin 1.6 % (0.5-1.5) H 07/31/18 04:00 POC ABG HHb (Measured) 0.4 % (0-5) 07/31/18 04:00 ABG Methemoglobin 0.9 % (0.0-3.0) 07/31/18 04:00 ABG O2 Capacity 21.8 mL/dl (16-24) 07/31/18 04:00 Hgb O2 Saturation 97.1 % (95.0-98.0) 07/31/18 04:00 FiO2 100.0 % 07/31/18 04:00 Sodium 141 mmol/L (132-148) 08/02/18 06:20 Potassium 4.2 mmol/L (3.6-5.0) 08/02/18 06:20 Chloride 106 mmol/L (98-107) 08/02/18 06:20 Carbon Dioxide 27 mmol/L (21-33) 08/02/18 06:20 Anion Gap 11 (10-20) 08/02/18 06:20 BUN 19 mg/dL (7-21) 08/02/18 06:20 Creatinine 0.7 mg/dl (0.8-1.5) L 08/02/18 06:20 Est GFR ( Amer) > 60 08/02/18 06:20 Est GFR (Non-Af Amer) > 60 08/02/18 06:20 Random Glucose 127 mg/dL (70-110) H 08/02/18 06:20 Hemoglobin A1c 5.6 % (4.2-6.5) 08/01/18 12:49 Lactic Acid 2.1 mmol/L (0.7-2.1) 07/31/18 05:40 Calcium 9.1 mg/dL (8.4-10.5) 08/02/18 06:20 Phosphorus 3.7 mg/dL (2.5-4.5) 08/01/18 05:30 Magnesium 2.3 mg/dL (1.7-2.2) H 08/01/18 05:30 Total Bilirubin 0.5 mg/dL (0.2-1.3) 08/02/18 06:20 AST 41 U/L (17-59) 08/02/18 06:20 ALT 75 U/L (7-56) H 08/02/18 06:20 Alkaline Phosphatase 75 U/L (38-126) 08/02/18 06:20 Lactate Dehydrogenase 618 U/L (333-699) 07/31/18 03:35 Total Creatine Kinase 130 U/L (35-230) 07/31/18 03:35 Troponin I < 0.01 ng/mL 07/31/18 03:35 Total Protein 7.0 g/dL (5.8-8.3) 08/02/18 06:20 Albumin 3.9 g/dL (3.0-4.8) 08/02/18 06:20 Globulin 3.0 gm/dL 08/02/18 06:20 Albumin/Globulin Ratio 1.3 (1.1-1.8) 08/02/18 06:20 Procalcitonin < 0.50 NG/ML (0.19-0.49) H 07/31/18 03:35 Urine Color Yellow (YELLOW) 07/31/18 16:40 Urine Appearance Clear (CLEAR) 07/31/18 16:40 Urine pH 6.0 (4.7-8.0) 07/31/18 16:40 Ur Specific Tillson >= 1.030 (1.005-1.035) 07/31/18 16:40 Urine Protein Negative mg/dL (<30 mg/dL) 07/31/18 16:40 Urine Glucose (UA) 500 mg/dL (NEGATIVE) H 07/31/18 16:40 Urine Ketones Negative mg/dL (NEGATIVE) 07/31/18 16:40 Urine Blood Negative (NEGATIVE) 07/31/18 16:40 Urine Nitrate Negative (NEGATIVE) 07/31/18 16:40 Urine Bilirubin Negative (NEGATIVE) 07/31/18 16:40 Urine Urobilinogen 0.2 E.U./dL (<1 E.U./dL) 07/31/18 16:40 Ur Leukocyte Esterase Negative Rashawn/uL (NEGATIVE) 07/31/18 16:40 IgE 651 kU/L (<xk=285) H 08/01/18 16:00 Influenza Typ A,B (EIA) Negative for flu a/b (NEGATIVE) 07/31/18 04:00 Attending/Attestation - Attestation I have personally seen and examined this patient.: Yes I have fully participated in the care of the patient.: Yes I have reviewed all pertinent clinical information, including history, physical exam and plan: Yes Notes (Text): 08/02/18 43 year old male with past medical history of asthma and medical noncompliance presented with shortness of breath secondary to asthma exacerbation. Symptoms improved with tapering iv steroids, levaquin, pulmicort, brovana and albuterol. He was being followed by pulmonary. Leukocytosis likely secondary to iv steroids. Patient is discharged home to follow up with [facility] and pulmonary. Issue of medication compliance and outpatient follow up were discussed with the patient. Ihsan Nelson MD Hospitalist.
[2018-08-02 15:05] VITALS: BP 112/73; PULSE 74; RESP 20; TEMP 97.4; O2SAT 96
== END 2018-08-02 15:20 | disposition home or self-care (01) | DRG 141 ==
LOC: ED 03:28 → ERH 04:48 → 5RNO 18:08
PROVIDERS: ADMIT Internal Medicine; ATTEND Internal Medicine
PROC: 3E0F7GC Introduction of Other Therapeutic Substance into Respiratory Tract, Via Natural or Artificial Opening (ICD-10-PCS; principal; 2018-08-01)
DX: J45.901 Unspecified asthma with (acute) exacerbation (principal); J18.9 Pneumonia, unspecified organism; E87.2 Acidosis; D72.1 Eosinophilia; T38.0X5A Adverse effect of glucocorticoids and synthetic analogues, initial encounter; Z91.19 Patient's noncompliance with other medical treatment and regimen; Z87.891 Personal history of nicotine dependence

== ENCOUNTER 2018-08-21 17:41 | Emergency (ER) | payer OTHER ==
[2018-08-21 17:42] VITALS: BMI 21.2
[2018-08-21] MEDS: Albuterol-Ipratrop 3 mg / 0.5 (3 ml) UD IH SCH ×3 (17:57→18:17)
--- NOTE | 2018-08-21 18:21 | ED PDOC ---
Arrival/HPI - General Chief Complaint: Respiratory Distress Time Seen by Provider: 08/21/18 17:44 Historian: Patient - History of Present Illness Narrative History of Present Illness (Text): 08/21/18 18:15 43-year-old male with a history of asthma presents today with acute asthma exacerbation. Patient states he has been taking his prednisone and rescue inhaler without improvement. Patient complaining of back pain and tightness in the chest. He denies fevers or chills. Denies cough. Denies stuffy nose or ear pain. Complaining of sore throat and tightness in the throat. No nausea vomiting diarrhea or constipation. No other complaints Past Medical History - Provider Review Nursing Documentation Reviewed: Yes - Infectious Disease Hx of Infectious Diseases: None - Tetanus Immunization Tetanus Immunization: Unknown - Cardiac Hx Cardiac Disorders: No - Pulmonary Hx Respiratory Disorders: Yes Hx Asthma: Yes Other/Comment: PNEUMOTHORAX 2 YRS AGO-TUBE PLACED LEFT SIDE OF LUNG. - Neurological Hx Neurological Disorder: No - HEENT Hx HEENT Disorder: No - Renal Hx Renal Disorder: No - Endocrine/Metabolic Hx Endocrine Disorders: No - Hematological/Oncological Hx Blood Disorders: No - Integumentary Hx Dermatological Disorder: No - Musculoskeletal/Rheumatological Hx Musculoskeletal Disorders: No Hx Falls: No - Gastrointestinal Hx Gastrointestinal Disorders: No - Genitourinary/Gynecological Hx Genitourinary Disorders: No - Psychiatric Hx Psychophysiologic Disorder: No Hx Substance Use: No - Past Surgical History Past Surgical History: No Previous - Surgical History Other/Comment: fluid removed out of chest 2 yrs ago - Anesthesia Hx Anesthesia: Yes Hx Anesthesia Reactions: No Hx Malignant Hyperthermia: No - Suicidal Assessment Feels Threatened In Home Enviroment: No Family/Social History - Physician Review Nursing Documentation Reviewed: Yes Family/Social History: Unknown Family HX Smoking Status: Former Smoker Hx Alcohol Use: No Hx Substance Use: No Hx Substance Use Treatment: No Allergies/Home Meds Allergies/Adverse Reactions: Allergies No Known Allergies Allergy (Verified 08/21/18 17:48) Review of Systems - Review of Systems Constitutional: absent: Fatigue, Fevers ENT: Sore Throat, Sinus Congestion Respiratory: SOB, Wheezing Cardiovascular: absent: Chest Pain, Palpitations Gastrointestinal: absent: Abdominal Pain, Nausea, Vomiting Genitourinary Male: absent: Dysuria Musculoskeletal: Back Pain. absent: Arthralgias, Neck Pain Skin: absent: Rash, Pruritis Neurological: absent: Headache, Dizziness Psychiatric: absent: Anxiety, Depression Physical Exam Vital Signs Reviewed: Yes Vital Signs Temp Pulse Resp BP Pulse Ox 08/21/18 18:08 22 08/21/18 17:42 97.8 F 83 18 104/65 100 Temperature: Afebrile Blood Pressure: Normal Pulse: Regular Respiratory Rate: Normal Appearance: Positive for: Well-Appearing, Non-Toxic, Comfortable Pain Distress: None Mental Status: Positive for: Alert and Oriented X 3 - Systems Exam Head: Present: Atraumatic Pupils: Present: PERRL Extroacular Muscles: Present: EOMI Conjunctiva: Present: Normal Ears: Present: Normal, NORMAL TM Mouth: Present: Moist Mucous Membranes Nose (External): Present: Atraumatic Nose (Internal): Present: Normal Inspection Neck: Present: Normal Range of Motion, Trachea Midline Respiratory/Chest: Present: Accessory Muscle Use, Wheezes, Decreased Breath Sounds, Retracting, Tachypneic. No: Clear to Auscultation Cardiovascular: Present: Regular Rate and Rhythm. No: Murmurs Abdomen: No: Tenderness, Rebound, Guarding Back: Present: Normal Inspection. No: CVA Tenderness, Midline Tenderness, Paraspinal Tenderness Upper Extremity: Present: Normal ROM Lower Extremity: Present: Normal ROM Neurological: Present: GCS=15, Speech Normal Skin: Present: Warm, Dry, Normal Color. No: Rashes Psychiatric: Present: Alert, Oriented x 3 Medical Decision Making ED Course and Treatment: 08/21/18 18:55 43yr old male with hx of asthma presenting with asthma exacerbation pt given 3 duonebs/ solumedrol 125mg po cxr; no infiltrate cbc; wnl cmp; k; 3.5 glucose; 127 pt reassessment; vitals stable. pt still c/o wheezing. feeling slightly better. pt with diffuse wheezing noted bilaterally. magnesium added IV. case discussed with dr. mistry in depth; accepts observational status admission to med/surg for asthma exacerbation. impression; asthma exacerbation obs med/surg Reassessment Condition: Re-examined, Improving,but remains with symptoms - RAD Interpretation Radiology Orders: 08/21/18 17:50 CHEST PORTABLE [RAD] Stat - Medication Orders Current Medication Orders: Albuterol/Ipratropium (Duoneb 3 Mg/0.5 Mg (3 Ml) Ud) 3 ml IH Q15M [facility] Stop: 08/21/18 18:31 Last Admin: 08/21/18 18:07 Dose: 3 ml Discontinued Medications Methylprednisolone (Solu-Medrol) 125 mg IVP STAT STA Stop: 08/21/18 17:50 Last Admin: 08/21/18 17:57 Dose: 125 mg IVP Administration Document 08/21/18 17:57 GMD (Rec: 08/21/18 17:57 GMD [id number]) Charges for Administration # of IVP Administrations 1 Disposition/Present on Arrival - Present on Arrival Any Indicators Present on Arrival: No History of DVT/PE: No History of Uncontrolled Diabetes: No Urinary Catheter: No History of Decub. Ulcer: No History Surgical Site Infection Following: None - Disposition Have Diagnosis and Disposition been Completed?: Yes Diagnosis: Asthma exacerbation Disposition: HOSPITALIZED Disposition Time: 19:40 Patient Plan: Observation Patient Problems: Current Active Problems Problem Status Onset Asthma exacerbation Acute Condition: FAIR Forms: [employer] (Welsh)
[2018-08-21 18:27] LABS: BASO # 0.02 K/mm3 (0.0-2.0); BASO % 0.2 % (0.0-3.0); EOS # 0.2 (0.0-0.7); EOS % 2.6 % (1.5-5.0); HEMOGLOBIN 15.2 g/dL (14.0-18.0); LYMPH % 23.7 % (22.0-35.0); MEAN CELL VOLUME 88.1 fl (80.0-105.0); MEAN CORPUSCULAR HEMOGLOBIN 30.2 pg (25.0-35.0); MEAN CORPUSCULAR HGB CONC 34.3 g/dl (31.0-37.0); MEAN PLATELET VOLUME 8.5 fl (7.0-11.0); MONO # 0.6 (0.1-0.6); MONO % 6.9 % (1.0-6.0); RBC 5.03 10^6/uL (3.5-6.1); RED CELL DISTRIBUTION WIDTH 13.3 % (11.5-14.5); WHITE BLOOD COUNT 8.4 10^3/uL (4.5-11.0)
[2018-08-21 18:36] LABS: ALB/GLOB RATIO 1.5 (1.1-1.8); ALBUMIN 4.2 g/dL (3.0-4.8); ALT/SGPT 30 U/L (7-56); AST/SGOT 35 U/L (17-59); BLOOD UREA NITROGEN 16 mg/dL (7-21); CALCIUM 8.8 mg/dL (8.4-10.5); GFR NON-AFRICAN AMERICAN > 60
[2018-08-21] MEDS ORDERED: Magnesium Sulfate 2 gm/50 ml 2 GM/50 ML BAG IVPB ONE (19:25)
[2018-08-21 20:48] VITALS: RESP 18
--- NOTE | 2018-08-21 21:47 | CP.PCM.HP ---
History of Present Illness - History of Present Illness History of Present Illness: Medicine History and Physical for Hospitalist Service, Dr. Amaya Wright, PGY-1 This is a 43 y o male with PMhx asthma who presents today with worsening shortness of breath, exacerbation of asthma symptoms. Pt was recently discharged in mid-July 2018 for asthma exacerbation. States he took Medrol dose pack and Levaquin as prescribed, finished course of medications. Pt states he recently went to [facility] last week for follow-up after his hospital visit and given referral for Pulmonology appt which he says he has coming up in September. States he has been getting progressively short of breath during the day for the past week, denies nighttime symptoms of shortness of breath or wheezing that awaken him from sleep. States he has only been using the Albuterol inhaler and Fluticasone inhaler as needed when he has shortness of breath. Admits to tightness in his chest when he takes a deep breath in, but denies chest pain, n/v/d/c, abd pain, fever, chills, dizziness, urinary compla ints, or other symptoms. Also c/o achiness in back of L shoulder and lateral rib pain in his back on the L side. 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 Mcleod Present on Admission - Present on Admission Any Indicators Present on Admission: No History of DVT/PE: No History of Uncontrolled Diabetes: No Urinary Catheter: No Decubitus Ulcer Present: No Review of Systems - Constitutional Constitutional: absent: Chills, Fatigue, Fever, Malaise, Night Sweats - Cardiovascular Cardiovascular: Dyspnea on Exertion. absent: Chest Pain, Diaphoresis, Leg Edema, Palpitations, Syncope - Respiratory Respiratory: Dyspnea, Dyspnea on Exertion, Pain on Inspiration. absent: Cough, Wheezing, Chest Congestion, Excessive Mucous Production - Gastrointestinal Gastrointestinal: absent: Abdominal Pain, Change in Bowel Habits, Constipation, Diarrhea, Nausea, Vomiting - Integumentary Integumentary: absent: Rash - Neurological Neurological: absent: Abnormal Gait, Dizziness, Numbness, Syncope, Tingling, Vertigo Past Patient History - Infectious Disease Hx of Infectious Diseases: None - Tetanus Immunizations Tetanus Immunization: Unknown - Past Social History Smoking Status: Former Smoker - CARDIAC Hx Cardiac Disorders: No - PULMONARY Hx Respiratory Disorders: Yes Hx Asthma: Yes Other/Comment: PNEUMOTHORAX 2 YRS AGO-TUBE PLACED LEFT SIDE OF LUNG. - NEUROLOGICAL Hx Neurological Disorder: No - HEENT Hx HEENT Problems: No - RENAL Hx Chronic Kidney Disease: No - ENDOCRINE/METABOLIC Hx Endocrine Disorders: No - HEMATOLOGICAL/ONCOLOGICAL Hx Blood Disorders: No - INTEGUMENTARY Hx Dermatological Problems: No - MUSCULOSKELETAL/RHEUMATOLOGICAL Hx Musculoskeletal Disorders: No Hx Falls: No - GASTROINTESTINAL Hx Gastrointestinal Disorders: No - GENITOURINARY/GYNECOLOGICAL Hx Genitourinary Disorders: No - PSYCHIATRIC Hx Psychophysiologic Disorder: No Hx Substance Use: No - SURGICAL HISTORY Other/Comment: fluid removed out of chest 2 yrs ago - ANESTHESIA Hx Anesthesia: Yes Hx Anesthesia Reactions: No Hx Malignant Hyperthermia: No Meds Allergies/Adverse Reactions: Allergies Allergy/AdvReac Type Severity Reaction Status Date / Time No Known Allergies Allergy Verified 08/21/18 17:48 Physical Exam - Constitutional Appears: Non-toxic, No Acute Distress - Head Exam Head Exam: ATRAUMATIC, NORMOCEPHALIC - Eye Exam Eye Exam: EOMI, Normal appearance, PERRL - ENT Exam ENT Exam: Mucous Membranes Moist - Respiratory Exam Respiratory Exam: Clear to Auscultation Bilateral, NORMAL BREATHING PATTERN. absent: Rales, Rhonchi, Wheezes - Cardiovascular Exam Cardiovascular Exam: REGULAR RHYTHM, +S1, +S2. absent: Gallop, Rubs, Systolic Murmur - GI/Abdominal Exam GI & Abdominal Exam: Normal Bowel Sounds, Soft. absent: Distended, Guarding, Organomegaly, Rigid, Tenderness - Extremities Exam Extremities exam: Positive for: full ROM, normal capillary refill, normal inspection, pedal pulses present. Negative for: calf tenderness, pedal edema - Neurological Exam Neurological exam: Alert, CN II-XII Intact, Oriented x3, Reflexes Normal - Psychiatric Exam Psychiatric exam: Normal Affect, Normal Mood - Skin Skin Exam: Dry, Intact, Normal Color, Warm Results - Vital Signs Recent Vital Signs: Last Vital Signs Temp 97.8 F 08/21/18 17:42 Pulse 82 08/21/18 20:47 Resp 18 08/21/18 20:47 BP 113/54 L 08/21/18 20:47 Pulse Ox 99 08/21/18 20:47 - Labs Result Diagrams: 08/21/18 17:50 08/21/18 17:50 Labs: Laboratory Results - last 24 hr 08/21/18 08/21/18 17:50 17:50 WBC 8.4 D RBC 5.03 Hgb 15.2 Hct 44.3 MCV 88.1 MCH 30.2 MCHC 34.3 RDW 13.3 Plt Count 210 MPV 8.5 Neut % (Auto) 66.6 Lymph % (Auto) 23.7 [place] % (Auto) 6.9 H Eos % (Auto) 2.6 Baso % (Auto) 0.2 Lymph # (Auto) 2.0 [place] # (Auto) 0.6 Eos # (Auto) 0.2 Baso # (Auto) 0.02 Absolute Neuts (auto) 5.60 Sodium 139 Potassium 3.5 L Chloride 106 Carbon Dioxide 25 Anion Gap 12 BUN 16 Creatinine 0.8 Est GFR ( Amer) > 60 Est GFR (Non-Af Amer) > 60 Random Glucose 127 H Calcium 8.8 Total Bilirubin 0.5 AST 35 ALT 30 Alkaline Phosphatase 77 Total Protein 7.1 Albumin 4.2 Globulin 2.8 Albumin/Globulin Ratio 1.5 Assessment & Plan - Assessment and Plan (Free Text) Assessment: This is a 43 y o male with PMhx asthma who presents today with worsening shortness of breath, exacerbation of asthma symptoms. Admitted for management of asthma exacerbation. Plan: Asthma exacerbation -May be 2/2 sub-optimal medical management, medication non-compliance, vs. possible trigger of cold weather -Admit to med/surg -Albuterol q6h -Brovana, Pulmicort q12h -Claritin daily -Solu-Medrol 40 mg IVP daily, s/p dose 125 mg x1 in ED -Measure peak flow q12h -Procal ordered -No antibiotic therapy indicated at this time -No leukocytosis on admission -Afebrile, vitals stable, cont to monitor -CXR on admission demonstrates no active disease Hypokalemia -K 3.5 on admission -S/p 20 meQ KCl PO x1, cont to trend CMP PPX: Pepcid bid/SCD Pt seen, examined with, and plan discussed with Dr. Amaya Mcintosh, attending physician. Basil Wright DO PGY-1, Group Home Counselor Pager #[phone]
[2018-08-21] MEDS ORDERED: Potassium Chloride 20 mEq/15 ml LIQ UD PO STA (23:52)
[2018-08-22] MEDS: Albuterol 0.5% Inhal Sol (2.5 mg/0.5 ml) UD IH SCH ×2 (02:39→04:19)
[2018-08-22] MEDS ORDERED: Albuterol 0.083% Inhal Sol (2.5 mg/3 mL) UD ONE (02:40)
[2018-08-22] MEDS ORDERED: Albuterol 0.5% Inhal Sol (2.5 mg/0.5 ml) UD IH PRN (03:18)
--- NOTE | 2018-08-22 07:30 | CP.PCM.PN ---
Subjective - Date & Time of Evaluation Date of Evaluation: 08/22/18 Time of Evaluation: 07:30 - Subjective Subjective: Rhett Arroyo DO, PGY-1 Hospitalist Progress Note for Dr. Coreas Patient was seen and examined at bedside this AM. Objective - Vital Signs/Intake and Output Vital Signs (last 24 hours): Temp Pulse Resp BP Pulse Ox 98.2 F 70 18 94/57 L 18 L 08/22/18 06:17 08/22/18 06:17 08/21/18 20:47 08/22/18 06:17 08/22/18 06:17 - Medications Medications: Current Medications Albuterol Sulfate (Albuterol 0.5% Inhal [place] (2.5 Mg/0.5 Ml) Ud) 2.5 mg IH [id number] PRN PRN Reason: Shortness of Breath Arformoterol Tartrate (Brovana) 15 mcg IH [id number] [facility] Budesonide (Pulmicort Respules) 1 mg IH [id number] [facility] Famotidine (Pepcid) 20 mg PO 1000,2200 [facility] Last Admin: 08/22/18 00:54 Dose: 20 mg Loratadine (Claritin) 10 mg PO DAILY [facility] Methylprednisolone (Solu-Medrol) 40 mg IVP DAILY [facility] - Labs Labs: 08/21/18 17:50 08/21/18 17:50
[2018-08-22 07:36] LABS: HEMOGLOBIN 14.8 g/dL (14.0-18.0); LYMPH # 0.8 (1.2-3.4); LYMPH % 5.1 % (22.0-35.0); MEAN CORPUSCULAR HEMOGLOBIN 29.7 pg (25.0-35.0); MEAN CORPUSCULAR HGB CONC 33.7 g/dl (31.0-37.0); MEAN PLATELET VOLUME 8.6 fl (7.0-11.0); MONO # 0.5 (0.1-0.6); MONO % 3.3 % (1.0-6.0); PLATELET COUNT 204 10^3/uL (120.0-450.0); RBC 4.99 10^6/uL (3.5-6.1); RED CELL DISTRIBUTION WIDTH 13.4 % (11.5-14.5); WHITE BLOOD COUNT 14.8 10^3/uL (4.5-11.0)
[2018-08-22 07:53] LABS: ALB/GLOB RATIO 1.4 (1.1-1.8); ALT/SGPT 21 U/L (7-56); AST/SGOT 23 U/L (17-59); BLOOD UREA NITROGEN 14 mg/dL (7-21); CALCIUM 9.1 mg/dL (8.4-10.5); GFR NON-AFRICAN AMERICAN > 60
[2018-08-22] MEDS ORDERED: Budesonide 0.5 mg/2 ml Inhal Susp UD IH SCH (08:00)
[2018-08-22] MEDS ORDERED: Arformoterol 15 mcg/2 ml Inh Sol IH SCH (08:00)
[2018-08-22 08:20] LABS: LYMPHOCYTE 5 % (22.0-35.0); MONOCYTE 1 % (1.0-6.0); NEUTROPHIL 94 % (50.0-70.0); PLATELET ESTIMATE NORMAL (NORMAL)
--- NOTE | 2018-08-22 08:55 | RAD ---
Date of service: 08/21/2018 HISTORY: SOB COMPARISON: 07/31/2018. FINDINGS: LUNGS: The lungs are well inflated and clear. PLEURA: No pleural effusions or pneumothorax. CARDIOVASCULAR: The heart is normal in size. No aortic atherosclerotic calcifications present. OSSEOUS STRUCTURES: Within normal limits for the patient's age. VISUALIZED UPPER ABDOMEN: Normal. OTHER FINDINGS: None. IMPRESSION: No active pulmonary disease.
[2018-08-22 08:57] LABS: URINE BILIRUBIN NEGATIVE (NEGATIVE); URINE BLOOD NEGATIVE (NEGATIVE); URINE GLUCOSE (UA) NEGATIVE (NEGATIVE); URINE LEUKOCYTE ESTERASE NEGATIVE Leu/uL (NEGATIVE); URINE PROTEIN NEGATIVE mg/dL (<30 mg/dL); URINE UROBILINOGEN 0.2 E.U./dL (<1 E.U./dL)
[2018-08-22 08:58] LABS: URINE APPEARANCE SLIGHT-CLOUDY (CLEAR); URINE COLOR LIGHT YELLOW (YELLOW)
[2018-08-22] MEDS ORDERED: MethylPREDNISolone 40 mg Vial IVP SCH (10:00)
[2018-08-22 10:25] LABS: BARBITURATES, UR NEGATIVE (NEGATIVE); BENZODIAZEPINES, UR NEGATIVE (NEGATIVE); OPIATES, UR NEGATIVE (NEGATIVE); PHENCYCLIDINE, UR NEGATIVE (NEGATIVE)
[2018-08-22 15:41] VITALS: BP 109/61; PULSE 71; TEMP 98.1; O2SAT 99
--- NOTE | 2018-08-22 17:26 | CP.PCM.DIS ---
<Rhett Arroyo - Last Filed: 08/22/18 17:19> Provider - Provider Date of Admission: 08/21/18 Attending physician: Joss Primary care physician: Harsha [facility] Consults: 08/22/18 10:15 Respiratory Therapy Referral Routine Comment: Physician Instructions: Reason For Exam: inhaler education Time Spent in preparation of Discharge (in minutes): 35 Diagnosis - Discharge Diagnosis (1) Asthma without status asthmaticus Status: Resolved (2) Asthma exacerbation Status: Resolved Hospital Course - Lab Results Lab Results: Most Recent Lab Values WBC 14.8 10^3/uL (4.5-11.0) H D 08/22/18 07:05 RBC 4.99 10^6/uL (3.5-6.1) 08/22/18 07:05 Hgb 14.8 g/dL (14.0-18.0) 08/22/18 07:05 Hct 43.9 % (42.0-52.0) 08/22/18 07:05 MCV 88.0 fl (80.0-105.0) 08/22/18 07:05 MCH 29.7 pg (25.0-35.0) 08/22/18 07:05 MCHC 33.7 g/dl (31.0-37.0) 08/22/18 07:05 RDW 13.4 % (11.5-14.5) 08/22/18 07:05 Plt Count 204 10^3/uL (120.0-450.0) 08/22/18 07:05 MPV 8.6 fl (7.0-11.0) 08/22/18 07:05 Neut % (Auto) 91.6 % (50.0-68.0) H 08/22/18 07:05 Lymph % (Auto) 5.1 % (22.0-35.0) L 08/22/18 07:05 Millard % (Auto) 3.3 % (1.0-6.0) 08/22/18 07:05 Eos % (Auto) 0.0 % (1.5-5.0) L 08/22/18 07:05 Baso % (Auto) 0.0 % (0.0-3.0) 08/22/18 07:05 Lymph # (Auto) 0.8 (1.2-3.4) L 08/22/18 07:05 Millard # (Auto) 0.5 (0.1-0.6) 08/22/18 07:05 Eos # (Auto) 0.0 (0.0-0.7) 08/22/18 07:05 Baso # (Auto) 0.00 K/mm3 (0.0-2.0) 08/22/18 07:05 Absolute Neuts (auto) 13.52 (1.4-6.5) H 08/22/18 07:05 Neutrophils % (Manual) 94 % (50.0-70.0) H 08/22/18 07:05 Lymphocytes % (Manual) 5 % (22.0-35.0) L 08/22/18 07:05 Monocytes % (Manual) 1 % (1.0-6.0) 08/22/18 07:05 Platelet Evaluation Normal (NORMAL) 08/22/18 07:05 Sodium 140 mmol/L (132-148) 08/22/18 07:05 Potassium 3.8 mmol/L (3.6-5.0) 08/22/18 07:05 Chloride 107 mmol/L (98-107) 08/22/18 07:05 Carbon Dioxide 24 mmol/L (21-33) 08/22/18 07:05 Anion Gap 13 (10-20) 08/22/18 07:05 BUN 14 mg/dL (7-21) 08/22/18 07:05 Creatinine 0.6 mg/dl (0.8-1.5) L 08/22/18 07:05 Est GFR ( Amer) > 60 08/22/18 07:05 Est GFR (Non-Af Amer) > 60 08/22/18 07:05 Random Glucose 153 mg/dL (70-110) H 08/22/18 07:05 Calcium 9.1 mg/dL (8.4-10.5) 08/22/18 07:05 Phosphorus 3.3 mg/dL (2.5-4.5) 08/22/18 07:05 Magnesium 2.5 mg/dL (1.7-2.2) H 08/22/18 07:05 Total Bilirubin 0.5 mg/dL (0.2-1.3) 08/22/18 07:05 AST 23 U/L (17-59) 08/22/18 07:05 ALT 21 U/L (7-56) 08/22/18 07:05 Alkaline Phosphatase 70 U/L (38-126) 08/22/18 07:05 Total Protein 6.9 g/dL (5.8-8.3) 08/22/18 07:05 Albumin 4.0 g/dL (3.0-4.8) 08/22/18 07:05 Globulin 2.9 gm/dL 08/22/18 07:05 Albumin/Globulin Ratio 1.4 (1.1-1.8) 08/22/18 07:05 Procalcitonin < 0.05 NG/ML (0.19-0.49) L 08/21/18 17:50 Urine Color Light yellow (YELLOW) 08/22/18 08:45 Urine Appearance Slight-cloudy (CLEAR) 08/22/18 08:45 Urine pH 7.0 (4.7-8.0) 08/22/18 08:45 Ur Specific [place] 1.025 (1.005-1.035) 08/22/18 08:45 Urine Protein Negative mg/dL (<30 mg/dL) 08/22/18 08:45 Urine Glucose (UA) Negative mg/dL (NEGATIVE) 08/22/18 08:45 Urine Ketones Negative mg/dL (NEGATIVE) 08/22/18 08:45 Urine Blood Negative (NEGATIVE) 08/22/18 08:45 Urine Nitrate Negative (NEGATIVE) 08/22/18 08:45 Urine Bilirubin Negative (NEGATIVE) 08/22/18 08:45 Urine Urobilinogen 0.2 E.U./dL (<1 E.U./dL) 08/22/18 08:45 Ur Leukocyte Esterase Negative Rashawn/uL (NEGATIVE) 08/22/18 08:45 Urine Opiates Screen Negative (NEGATIVE) 08/22/18 08:45 Urine Methadone Screen Negative (NEGATIVE) 08/22/18 08:45 Ur Barbiturates Screen Negative (NEGATIVE) 08/22/18 08:45 Ur Phencyclidine Scrn Negative (NEGATIVE) 08/22/18 08:45 Ur Amphetamines Screen Negative (NEGATIVE) 08/22/18 08:45 U Benzodiazepines Scrn Negative (NEGATIVE) 08/22/18 08:45 U Oth Cocaine Metabols Negative (NEGATIVE) 08/22/18 08:45 U Cannabinoids Screen Negative (NEGATIVE) 08/22/18 08:45 - Hospital Course Hospital Course: Rhett Arroyo DO, PGY-1 Hospitalist Discharge Summary for Dr. Coreas Stas is a pleasant 43 year old male with PMH of asthma (requiring intubation x 1 in 2013, hx of L tension PTX) presented to ED last night with the complaint of worsening SOB and cough c/w acute asthma exacerbation. He was subsequently given a dose of solumedrol and duo-neb treatments. He continued to improve over the course of the night. When examined this AM, patient was seen sitting up and ambulating in ED bed 20 without difficulty. He was not requiring supplemental O2. On examination, his wheezes had resolved. He complained of some indigestion and gas pains but states his shortness of breath and chest tightness had resolved. He is discharged with refills of albuterol rescue inhaler, pulmicort, 3 days of doxycycline, protonix, and prednisone taper. All medications were delivered at bedside prior to patient discharge. Patient was instructed by medicine team and then again by respiratory therapist on proper way to use his inhalers. Discharge plan was discussed with patient. All questions were answered. Patient seen, examined, and discharge plan discussed with my attending Dr. Joss Arroyo D.O. IM Resident PGY-1 Discharge Exam - Head Exam Head Exam: ATRAUMATIC, NORMOCEPHALIC - Eye Exam Eye Exam: EOMI, PERRL - ENT Exam ENT Exam: Mucous Membranes Moist - Neck Exam Neck exam: Full Rom, Normal Inspection - Respiratory Exam Respiratory Exam: Clear to PA & Lateral, NORMAL BREATHING PATTERN, UNREMARKABLE. absent: Accessory Muscle Use, Rales, Rhonchi, Wheezes, Respiratory Distress - Cardiovascular Exam Cardiovascular Exam: REGULAR RHYTHM, RRR, +S1, +S2. absent: Diastolic murmur, Gallop, Rubs, Systolic Murmur - GI/Abdominal Exam GI & Abdominal Exam: Normal Bowel Sounds, Soft, Unremarkable. absent: Tenderness - Extremities Exam Extremities exam: full ROM, normal inspection - Back Exam Back exam: FULL ROM, NORMAL INSPECTION - Neurological Exam Neurological exam: Alert, Oriented x3 - Psychiatric Exam Psychiatric exam: Normal Affect, Normal Mood - Skin Skin Exam: Dry, Intact, Warm Discharge Plan - Discharge Medications Prescriptions: RX: Albuterol HFA [Ventolin HFA 90 mcg/actuation (8 g)] 2 puff IH [id number] PRN #2 inhaler PRN Reason: Cough RX: Budesonide [Pulmicort Respules] 0.5 mg IH BID #1 neb RX: Doxycycline Hyclate [Doryx] 100 mg PO BID 3 Days #6 cap RX: Loratadine [Claritin] 10 mg PO DAILY #14 tab RX: Pantoprazole [Protonix EC Tab] 40 mg PO 0600 #14 ect RX: predniSONE [predniSONE Tab] See Taper PO DAILY #16 tab - Follow Up Plan Condition: FAIR Disposition: HOSPITALIZED Instructions: How to Use a Nebulizer, Adult, How to Use Your Metered Dose Inhaler (Adults), Medicines for Asthma, Asthma Action Plan, Rescue vs Controller Inhalers, Asthma (DC), Asthma (GEN) Additional Instructions: You have an appointment on September 04 at 9 am with the lung doctor, Dr. Mcintosh at [facility]. You have another appointment with your primary medical doctor, Dr. Mcleod, on October 02. Please keep both of these appointments. Please continue to take your inhalers as prescribed. Please start to wear a mask everyday you are at work to avoid exposure to things that may worsen your asthma. We have given you 3 new medications: 1. An antibiotic, doxycycline, please take twice a day for the next 3 days. 2. A pill to help with your heartburn, protonix, please take this once a day. 3. A steroid to help with your asthma, prednisone: For the first 3 days, take two, 20 mg pills once a day For the next 3 days, take one and a half pills once a day For the next 3 days, take one pill once a day For the next 3 days, take a half pill once a day Please use your albuterol inhaler only as needed when you feel short of breath or chest tightness every four hours. Please use the budesonide inhaler twice a day every regardless of how you feel. If any of your symptoms return or worsen, please present to nearest ED. <Sherley Coreas - Last Filed: 08/22/18 17:35> Provider - Provider Consults: 08/22/18 10:15 Respiratory Therapy Referral Routine Comment: Physician Instructions: Reason For Exam: inhaler education Hospital Course - Lab Results Lab Results: Most Recent Lab Values WBC 14.8 10^3/uL (4.5-11.0) H D 08/22/18 07:05 RBC 4.99 10^6/uL (3.5-6.1) 08/22/18 07:05 Hgb 14.8 g/dL (14.0-18.0) 08/22/18 07:05 Hct 43.9 % (42.0-52.0) 08/22/18 07:05 MCV 88.0 fl (80.0-105.0) 08/22/18 07:05 MCH 29.7 pg (25.0-35.0) 08/22/18 07:05 MCHC 33.7 g/dl (31.0-37.0) 08/22/18 07:05 RDW 13.4 % (11.5-14.5) 08/22/18 07:05 Plt Count 204 10^3/uL (120.0-450.0) 08/22/18 07:05 MPV 8.6 fl (7.0-11.0) 08/22/18 07:05 Neut % (Auto) 91.6 % (50.0-68.0) H 08/22/18 07:05 Lymph % (Auto) 5.1 % (22.0-35.0) L 08/22/18 07:05 Millard % (Auto) 3.3 % (1.0-6.0) 08/22/18 07:05 Eos % (Auto) 0.0 % (1.5-5.0) L 08/22/18 07:05 Baso % (Auto) 0.0 % (0.0-3.0) 08/22/18 07:05 Lymph # (Auto) 0.8 (1.2-3.4) L 08/22/18 07:05 Millard # (Auto) 0.5 (0.1-0.6) 08/22/18 07:05 Eos # (Auto) 0.0 (0.0-0.7) 08/22/18 07:05 Baso # (Auto) 0.00 K/mm3 (0.0-2.0) 08/22/18 07:05 Absolute Neuts (auto) 13.52 (1.4-6.5) H 08/22/18 07:05 Neutrophils % (Manual) 94 % (50.0-70.0) H 08/22/18 07:05 Lymphocytes % (Manual) 5 % (22.0-35.0) L 08/22/18 07:05 Monocytes % (Manual) 1 % (1.0-6.0) 08/22/18 07:05 Platelet Evaluation Normal (NORMAL) 08/22/18 07:05 Sodium 140 mmol/L (132-148) 08/22/18 07:05 Potassium 3.8 mmol/L (3.6-5.0) 08/22/18 07:05 Chloride 107 mmol/L (98-107) 08/22/18 07:05 Carbon Dioxide 24 mmol/L (21-33) 08/22/18 07:05 Anion Gap 13 (10-20) 08/22/18 07:05 BUN 14 mg/dL (7-21) 08/22/18 07:05 Creatinine 0.6 mg/dl (0.8-1.5) L 08/22/18 07:05 Est GFR ( Amer) > 60 08/22/18 07:05 Est GFR (Non-Af Amer) > 60 08/22/18 07:05 Random Glucose 153 mg/dL (70-110) H 08/22/18 07:05 Calcium 9.1 mg/dL (8.4-10.5) 08/22/18 07:05 Phosphorus 3.3 mg/dL (2.5-4.5) 08/22/18 07:05 Magnesium 2.5 mg/dL (1.7-2.2) H 08/22/18 07:05 Total Bilirubin 0.5 mg/dL (0.2-1.3) 08/22/18 07:05 AST 23 U/L (17-59) 08/22/18 07:05 ALT 21 U/L (7-56) 08/22/18 07:05 Alkaline Phosphatase 70 U/L (38-126) 08/22/18 07:05 Total Protein 6.9 g/dL (5.8-8.3) 08/22/18 07:05 Albumin 4.0 g/dL (3.0-4.8) 08/22/18 07:05 Globulin 2.9 gm/dL 08/22/18 07:05 Albumin/Globulin Ratio 1.4 (1.1-1.8) 08/22/18 07:05 Procalcitonin < 0.05 NG/ML (0.19-0.49) L 08/21/18 17:50 Urine Color Light yellow (YELLOW) 08/22/18 08:45 Urine Appearance Slight-cloudy (CLEAR) 08/22/18 08:45 Urine pH 7.0 (4.7-8.0) 08/22/18 08:45 Ur Specific [place] 1.025 (1.005-1.035) 08/22/18 08:45 Urine Protein Negative mg/dL (<30 mg/dL) 08/22/18 08:45 Urine Glucose (UA) Negative mg/dL (NEGATIVE) 08/22/18 08:45 Urine Ketones Negative mg/dL (NEGATIVE) 08/22/18 08:45 Urine Blood Negative (NEGATIVE) 08/22/18 08:45 Urine Nitrate Negative (NEGATIVE) 08/22/18 08:45 Urine Bilirubin Negative (NEGATIVE) 08/22/18 08:45 Urine Urobilinogen 0.2 E.U./dL (<1 E.U./dL) 08/22/18 08:45 Ur Leukocyte Esterase Negative Rashawn/uL (NEGATIVE) 08/22/18 08:45 Urine Opiates Screen Negative (NEGATIVE) 08/22/18 08:45 Urine Methadone Screen Negative (NEGATIVE) 08/22/18 08:45 Ur Barbiturates Screen Negative (NEGATIVE) 08/22/18 08:45 Ur Phencyclidine Scrn Negative (NEGATIVE) 08/22/18 08:45 Ur Amphetamines Screen Negative (NEGATIVE) 08/22/18 08:45 U Benzodiazepines Scrn Negative (NEGATIVE) 08/22/18 08:45 U Oth Cocaine Metabols Negative (NEGATIVE) 08/22/18 08:45 U Cannabinoids Screen Negative (NEGATIVE) 08/22/18 08:45 Attending/Attestation - Attestation I have personally seen and examined this patient.: Yes I have fully participated in the care of the patient.: Yes I have reviewed all pertinent clinical information, including history, physical exam and plan: Yes Notes (Text): 08/22/18 17:32 Medical record note made by the resident after discussion with my direction and input after the patient was personally seen and examined by me. I have reviewed the chart and agree that the record accurately reflects by personal performance of the history, physical exam, data review, and medical decision-making, in the course for the patient. I have also personally directed the plan of care. 43 year old male with PMH of moderate asthma (requiring intubation x 1 in 2013, hx of L tension PTX) presented to ED last night with acute asthma exacerbation.He has responded well to treatment. Cough and dyspnea is improved.Lung sound are clear.He is on room air.X ray is negative for Pneumonia.Patient is ambulatory. He will be discharged home on tapering dose of prednisone. He was given training how to use inhaler prior to discharge. Management plan was discussed in detail with patient. Education was provided.
--- NOTE | 2018-08-22 19:02 | CARD ---
APPROVED REPORT Date of service: 08/21/2018 EKG Measurement Heart [id number] <Conclusion> Normal sinus rhythm Normal ECG
[2018-08-23] MEDS ORDERED: Pantoprazole 40 mg EC Tab PO SCH (06:00)
== END 2018-08-22 15:00 | disposition home or self-care (01) ==
LOC: ED 17:41 → ERH 20:53 → UNDOADMOB 20:53 → ERH 08-22 14:17 → ED 08-22 15:00
DX: J45.901 Unspecified asthma with (acute) exacerbation (principal); E87.6 Hypokalemia; Z87.891 Personal history of nicotine dependence
CPT/HCPCS: 71045; 80053; 80324; 80345; 80346; 80349; 80353; 80358; 80361; 81003; 83735; 83992; 84100; 84145; 85025; 93005; 96365; 96375; 99285; J2920; J2930

== ENCOUNTER 2018-10-02 11:03 | Outpatient (CLI) | payer OTHER | END 2018-10-02 11:04 | disposition home or self-care (01) | LOC: LAB 11:03 ==

== ENCOUNTER 2018-10-08 10:05 | Outpatient (CLI) | payer OTHER | END 2018-10-08 10:06 | disposition home or self-care (01) | LOC: PULMO 10:05 ==

== ENCOUNTER 2018-10-29 08:48 | Emergency (ER) | payer MEDICAID, OTHER ==
[2018-10-29 09:00] VITALS: BMI 22.4
[2018-10-29 09:01] VITALS: BP 124/88; PULSE 83; RESP 16; TEMP 97.8; O2SAT 94
--- NOTE | 2018-10-29 09:12 | ED PDOC ---
Arrival/HPI <Antonio Roche - Last Filed: 10/29/18 10:11> - General Historian: Patient - History of Present Illness Narrative History of Present Illness (Text): Patient is a 43 year old male with past medical history of asthma presenting with chief complaint of left ear discomfort which began yesterday. Denies any discharge or bleeding from the ear. Admits to headache. Denies fevers, chills, chest pain, shortness of breath, abdominal pain, nausea, vomiting, diarrhea, dysuria. Time/Duration: 24 hours Symptom Onset: Sudden Symptom Course: Unchanged Quality: Aching <Carol Ann Arellano - Last Filed: 10/29/18 18:19> - General Chief Complaint: ENT Problem Past Medical History - Provider Review Nursing Documentation Reviewed: Yes - Infectious Disease Hx of Infectious Diseases: None - Tetanus Immunization Tetanus Immunization: Unknown - Cardiac Hx Cardiac Disorders: No - Pulmonary Hx Respiratory Disorders: Yes Hx Asthma: Yes Other/Comment: PNEUMOTHORAX 2 YRS AGO-TUBE PLACED LEFT SIDE OF LUNG. - Neurological Hx Neurological Disorder: No - HEENT Hx HEENT Disorder: No - Renal Hx Renal Disorder: No - Endocrine/Metabolic Hx Endocrine Disorders: No - Hematological/Oncological Hx Blood Disorders: No - Integumentary Hx Dermatological Disorder: No - Musculoskeletal/Rheumatological Hx Musculoskeletal Disorders: No Hx Falls: Yes - Gastrointestinal Hx Gastrointestinal Disorders: No - Genitourinary/Gynecological Hx Genitourinary Disorders: No - Psychiatric Hx Psychophysiologic Disorder: No Hx Substance Use: No - Past Surgical History Past Surgical History: No Previous - Surgical History Other/Comment: fluid removed out of chest 2 yrs ago - Anesthesia Hx Anesthesia: Yes Hx Anesthesia Reactions: No Hx Malignant Hyperthermia: No - Suicidal Assessment Feels Threatened In Home Enviroment: No <Carol Ann Arellano - Last Filed: 10/29/18 18:19> Family/Social History - Physician Review Nursing Documentation Reviewed: Yes Family/Social History: No Known Family HX Smoking Status: Former Smoker Hx Alcohol Use: No Hx Substance Use: No Hx Substance Use Treatment: No <Carol Ann Arellano - Last Filed: 10/29/18 18:19> Allergies/Home Meds <Antonio Roche - Last Filed: 10/29/18 10:11> <Carol Ann Arellano - Last Filed: 10/29/18 18:19> Allergies/Adverse Reactions: Allergies No Known Allergies Allergy (Verified 08/22/18 13:11) Review of Systems - Review of Systems Constitutional: absent: Fatigue, Weight Change, Fevers, Night Sweats Eyes: absent: Vision Changes, Photophobia, Eye Pain Respiratory: absent: SOB, Cough Cardiovascular: absent: Chest Pain Gastrointestinal: absent: Abdominal Pain, Stool Changes Genitourinary Male: absent: Dysuria, Frequency Musculoskeletal: absent: Arthralgias, Back Pain Skin: absent: Rash, Pruritis Endocrine: absent: Diaphoresis Hemo/Lymphatic: absent: Adenopathy <Antonio Roche - Last Filed: 10/29/18 10:11> - Physician Review All systems were reviewed & negative as marked: Yes - Review of Systems Eyes: Normal ENT: Other (ear pain). absent: Hearing Changes Respiratory: Normal Cardiovascular: Normal Neurological: Headache <Carol Ann Arellano L - Last Filed: 10/29/18 18:19> Physical Exam Vital Signs Temp Pulse Resp BP Pulse Ox 10/29/18 09:00 97.8 F 83 16 124/88 94 L - Systems Exam Ears: Present: Normal, Normal Canal. No: Erythema, TM Bulging, Fluid, TM Perf Pharnyx: Present: Normal. No: ERYTHEMA, EXUDATE, TONSILS ENLARGED, Peritonsilar Swelling, Uvular Deviation, Muffled/Hoarse Voice Nose (External): Present: Atraumatic. No: Abrasion Nose (Internal): Present: Normal Inspection Neck: Present: Normal Range of Motion. No: Meningeal Signs, MIDLINE TENDERNESS, Paraspinal Tenderness, JVD, Lymphadenopathy Back: Present: Normal Inspection. No: CVA Tenderness, Midline Tenderness Upper Extremity: Present: Normal Inspection, Normal ROM. No: Cyanosis, Edema Neurological: Present: Motor Func Grossly Intact, Normal Sensory Function, Normal Cerebellar Funct, Gait Normal, Memory Normal Psychiatric: Present: Normal Insight, Normal Affect, Normal Mood. No: Suicidal Ideation, Homicidal Ideation, Intoxicated <Antonio Roche - Last Filed: 10/29/18 10:11> Vital Signs Reviewed: Yes Vital Signs Temp Pulse Resp BP Pulse Ox 10/29/18 09:00 97.8 F 83 16 124/88 94 L Temperature: Afebrile Blood Pressure: Normal Pulse: Regular Respiratory Rate: Normal Appearance: Positive for: Well-Appearing, Comfortable Pain Distress: None Mental Status: Positive for: Alert and Oriented X 3 - Systems Exam Head: Present: Atraumatic, Normocephalic Pupils: Present: PERRL Extroacular Muscles: Present: EOMI Conjunctiva: Present: Normal Ears: Present: NORMAL TM Mouth: Present: Moist Mucous Membranes Respiratory/Chest: Present: Clear to Auscultation, Good Air Exchange. No: Respiratory Distress Cardiovascular: Present: Regular Rate and Rhythm, Normal S1, S2 Abdomen: Present: Normal Bowel Sounds. No: Tenderness, Distention Lower Extremity: Present: Normal Inspection Neurological: Present: GCS=15, CN II-XII Intact, Speech Normal Skin: Present: Warm, Dry, Normal Color Psychiatric: Present: Alert, Oriented x 3 <Carol Ann Arellano - Last Filed: 10/29/18 18:19> Medical Decision Making ED Course and Treatment: 10/29/18 09:34 A 43 year old male presents to the ED with a complaint of one day duration left ear discomfort.In agreement with resident note, which includes further HPI details. Patient was seen and evaluated with resident, came up with plan and treatment together. - RAD Interpretation Radiology Orders: 10/29/18 09:12 HEAD W/O CONTRAST [CT] Stat - Medication Orders Current Medication Orders: Discontinued Medications Acetaminophen (Tylenol 325mg Tab) 650 mg PO STAT STA Stop: 10/29/18 09:28 <Antonio Roche - Last Filed: 10/29/18 10:11> ED Course and Treatment: Impression: 43 year old male with ear discomfort Plan: - rapid strep - CT head w/o contrast - Reassess and disposition Prior Visits: Notes and results from previous visits were reviewed. Progress Notes: 10/29/18 09:50 Strep negative 10/29/18 10:22 FINDINGS: HEMORRHAGE: No intracranial hemorrhage. BRAIN: Villalobos-white matter differentiation is preserved. There is no mass, mass effect or abnormal extra-axial fluid collection. There is no territorial infarction. The midline sagittal structures are normal. VENTRICLES: The ventricles are normal in size, shape and configuration. CALVARIUM: There is no calvarial fracture or extracranial soft tissue swelling. PARANASAL SINUSES: Predominantly clear. MASTOID AIR CELLS: Predominantly clear. OTHER FINDINGS: None. IMPRESSION: No acute intracranial abnormality. 10/29/2018 10:40 Patient appears comfortable, hemodynamically stable. No focal neurological deficits. Optimized for discharge to follow up with neurology and ENT. <Carol Ann Arellano - Last Filed: 10/29/18 18:19> - PA / STAFF RADIOGRAPHER / Resident Statement / has reviewed & agrees with the documentation as recorded. ARLEY has examined the patient and agrees with the treatment plan. (43 yr old male w/ no ppmhx p/w headache, not worst of life, not sudden in onset. He describes the AYALA as L sided ear pain, not really in his head. He denies any fall or trauma. No menigneal signs on exam. No temporal pain or vision issues. No s hock like pain. No jaw pain or pain on palpation of gingiva or teeth. No adenopathy (cervical or posterior) noted. No mastoid tenderness/erythema or auricalr tenderness / erytheam. TM unremarkable, Canal unremarakble. Likely MSK pain from sleeping on L side of anterior auricle.) - Scribe Statement The provider has reviewed the documentation as recorded by the Lisaibclarice Estrella Provider Scribe Attestation: All medical record entries made by the Scribe were at my direction and personally dictated by me. I have reviewed the chart and agree that the record accurately reflects my personal performance of the history, physical exam, medical decision making, and the department course for this patient. I have also personally directed, reviewed, and agree with the discharge instructions and disposition. <Antonio Roche - Last Filed: 10/29/18 10:11> Disposition/Present on Arrival <Antonio Roche - Last Filed: 10/29/18 10:11> - Present on Arrival Any Indicators Present on Arrival: No History of DVT/PE: No History of Uncontrolled Diabetes: No Urinary Catheter: No History of Decub. Ulcer: No History Surgical Site Infection Following: None - Disposition Have Diagnosis and Disposition been Completed?: Yes Disposition Time: 10:25 <Carol Ann Arellano - Last Filed: 10/29/18 18:19> - Disposition Diagnosis: Ear discomfort, Headache Disposition: HOME/ ROUTINE Condition: STABLE Discharge Instructions (ExitCare): Headache, Adult (DC) Print Language: DIVEHI Additional Instructions: Follow up with your primary medical doctor within 3-5 days You have also been provided referrals to Neurology and ENT. Follow up with Neurology and ENT within one week Return to ED if symptoms worsen Referrals: Javier Cash MD [Staff Provider] - Follow up with primary Thomas Brown DO [Staff Provider] - Follow up with primary Jaki Mcleod MD [Family Provider] - Follow up with primary Forms: [facility] (Yi)
--- NOTE | 2018-10-29 10:06 | CT ---
Date of service: 10/29/2018 PROCEDURE: CT HEAD WITHOUT CONTRAST. HISTORY: Headache COMPARISON: None available. TECHNIQUE: Axial computed tomography images were obtained through the head/brain without intravenous contrast. Radiation dose: Total exam DLP = 932.87 mGy-cm. This CT exam was performed using one or more of the following dose reduction techniques: Automated exposure control, adjustment of the mA and/or kV according to patient size, and/or use of iterative reconstruction technique. FINDINGS: HEMORRHAGE: No intracranial hemorrhage. BRAIN: Villalobos-white matter differentiation is preserved. There is no mass, mass effect or abnormal extra-axial fluid collection. There is no territorial infarction. The midline sagittal structures are normal. VENTRICLES: The ventricles are normal in size, shape and configuration. CALVARIUM: There is no calvarial fracture or extracranial soft tissue swelling. PARANASAL SINUSES: Predominantly clear. MASTOID AIR CELLS: Predominantly clear. OTHER FINDINGS: None. IMPRESSION: No acute intracranial abnormality.
== END 2018-10-29 10:41 | disposition home or self-care (01) ==
LOC: ED 08:48
DX: H92.02 Otalgia, left ear (principal); R51 Headache

== ENCOUNTER 2018-11-03 16:31 | Emergency (ER) | payer OTHER ==
[2018-11-03 16:32] VITALS: BMI 22.4
[2018-11-03 16:54] VITALS: TEMP 98.8
[2018-11-03] MEDS ORDERED: Sodium Chloride 0.9% 1,000 ML IV STA (17:16)
--- NOTE | 2018-11-03 17:25 | ED PDOC ---
Arrival/HPI - General Chief Complaint: Anxiety Time Seen by Provider: 11/03/18 16:47 Historian: Patient, Motion And Time Study Teacher (Wound Specialist # [id number]) - History of Present Illness Narrative History of Present Illness (Text): 11/03/18 19:00 43 y/o male with PMH of asthma presents to the ED c/o increased anxiety x 4 hours. States he feels shaky and uneasy. Pt has been experiencing increased stress at home and work. Pt has also used his ventolin and nebulizer multiple times today for his asthma, which he thinks may be contributing to his anxiety and shakiness. He does not have a history of anxiety. Denies fever, chills, cough, congestion, chest pain, SOB, wheezing, sore throat, headache, dizziness, syncope, back pain, neck pain, or any other associated symptoms. PMD: Dr. Mcleod Past Medical History - Provider Review Nursing Documentation Reviewed: Yes - Infectious Disease Hx of Infectious Diseases: None - Tetanus Immunization Tetanus Immunization: Unknown - Cardiac Hx Cardiac Disorders: No - Pulmonary Hx Respiratory Disorders: Yes Hx Asthma: Yes Other/Comment: PNEUMOTHORAX 2 YRS AGO-TUBE PLACED LEFT SIDE OF LUNG. - Neurological Hx Neurological Disorder: No - HEENT Hx HEENT Disorder: No - Renal Hx Renal Disorder: No - Endocrine/Metabolic Hx Endocrine Disorders: No - Hematological/Oncological Hx Blood Disorders: No - Integumentary Hx Dermatological Disorder: No - Musculoskeletal/Rheumatological Hx Musculoskeletal Disorders: No Hx Falls: Yes - Gastrointestinal Hx Gastrointestinal Disorders: No - Genitourinary/Gynecological Hx Genitourinary Disorders: No - Psychiatric Hx Psychophysiologic Disorder: No Hx Substance Use: No - Past Surgical History Past Surgical History: No Previous - Surgical History Other/Comment: fluid removed out of chest 2 yrs ago - Anesthesia Hx Anesthesia: Yes Hx Anesthesia Reactions: No Hx Malignant Hyperthermia: No - Suicidal Assessment Feels Threatened In Home Enviroment: No Family/Social History - Physician Review Nursing Documentation Reviewed: Yes Family/Social History: No Known Family HX Smoking Status: Former Smoker Hx Alcohol Use: No Hx Substance Use: No Hx Substance Use Treatment: No Allergies/Home Meds Allergies/Adverse Reactions: Allergies No Known Allergies Allergy (Verified 08/22/18 13:11) Home Medications: Home Meds Medication Instructions Recorded Confirmed Fluticasone Propionate [Flonase 0 ml NS 11/03/18 Allergy Relief] Review of Systems - Review of Systems Constitutional: Other ("shakiness"). absent: Fevers Eyes: Normal. absent: Vision Changes ENT: Normal. absent: Sore Throat, Sinus Congestion Respiratory: Normal. absent: SOB, Cough Cardiovascular: Normal. absent: Chest Pain, Palpitations, Syncope Gastrointestinal: Normal. absent: Abdominal Pain, Nausea, Vomiting Genitourinary Male: Normal. absent: Dysuria, Frequency Musculoskeletal: Normal. absent: Back Pain Skin: Normal. absent: Rash Neurological: Normal. absent: Headache, Dizziness, Focal Weakness Endocrine: Normal. absent: Diaphoresis Psychiatric: Anxiety. absent: Suicidal Ideation Physical Exam Vital Signs Reviewed: Yes Vital Signs Temp Pulse Resp BP Pulse Ox 11/03/18 16:49 98.8 F 67 20 132/82 96 Temperature: Afebrile Blood Pressure: Normal Pulse: Regular Respiratory Rate: Normal Appearance: Positive for: Well-Appearing, Non-Toxic Pain Distress: None Mental Status: Positive for: Alert and Oriented X 3 - Systems Exam Head: Present: Atraumatic, Normocephalic Pupils: Present: PERRL Extroacular Muscles: Present: EOMI Conjunctiva: Present: Normal Mouth: Present: Moist Mucous Membranes Neck: Present: Normal Range of Motion. No: Meningeal Signs Respiratory/Chest: Present: Clear to Auscultation, Good Air Exchange. No: Respiratory Distress, Accessory Muscle Use Cardiovascular: Present: Regular Rate and Rhythm, Normal S1, S2, Peripheal Pulses Present Abdomen: Present: Normal Bowel Sounds. No: Tenderness, Distention, Peritoneal Signs, Rebound, Guarding Back: Present: Normal Inspection. No: CVA Tenderness Upper Extremity: Present: Normal Inspection, Normal ROM, NORMAL PULSES, Neurovascularly Intact, Capillary Refill < 2s. No: Cyanosis, Edema, Temperature Abnormalties Lower Extremity: Present: Normal Inspection, NORMAL PULSES, Normal ROM, Neurovascularly Intact, Capillary Refill < 2 s. No: Edema, Temperature Abnormalties Neurological: Present: GCS=15, CN II-XII Intact, Speech Normal, Motor Func Grossly Intact, Normal Sensory Function, Gait Normal Skin: Present: Warm, Dry, Normal Color. No: Rashes Psychiatric: Present: Alert, Oriented x 3, Normal Insight, Normal Concentration, Anxious. No: Suicidal Ideation, Homicidal Ideation, Intoxicated Medical Decision Making ED Course and Treatment: Initial Plan: * CBC, CMP * TSH, Free T4 * Troponin * UA * UDS * EKG * CXR * IVF * Ativan PO Pt appears well but anxious. PE otherwise normal, lungs CTA bilaterally. 19:12 Bloodwork reviewed, unremarkable EKG shows sinus bradycardia at 50 without ischemic changes. No AV block. Troponin negative. CXR read as negative by me 19:20 Patient reports resolution of symptoms with medication. Appears comfortable. Advised PMD and community mental health followup. Diagnostic testing results and plan of care discussed with patient. Strict instructions given regarding prescription use, importance of followup, and signs/symptoms to return to ER including chest pain, SOB, fever, or any other new/worsening symptoms. Pt verbalized understanding of discussion. Patient is A&Ox3, ambulating with steady gait, with vital signs stable for discharge. - Lab Interpretations Lab Results: 11/03/18 17:45 11/03/18 17:45 Lab Results 11/03/18 19:50: Urine Opiates Screen Negative, Urine Methadone Screen Negative, Ur Barbiturates Screen Negative, Ur Phencyclidine Scrn Negative, Ur Amphetamines Screen Negative, U Benzodiazepines Scrn Negative, U Oth Cocaine Metabols Negative, U Cannabinoids Screen Negative 11/03/18 19:50: Urine Color Light yellow, Urine Appearance Clear, Urine pH 6.0, Ur Specific [place] 1.010, Urine Protein Negative, Urine Glucose (UA) Negative, Urine Ketones Trace H, Urine Blood Negative, Urine Nitrate Negative, Urine Bilirubin Negative, Urine Urobilinogen 0.2, Ur Leukocyte Esterase Negative 11/03/18 18:20: Free T4 1.05, TSH 3rd Generation 0.83 11/03/18 17:45: Sodium 142, Potassium 3.6, Chloride 106, Carbon Dioxide 28, Anion Gap 12, BUN 13, Creatinine 0.8, Est GFR ( Amer) > 60, Est GFR (Non-Af Amer) > 60, Random Glucose 93, Calcium 9.1, Phosphorus 4.3, Magnesium 2.2, Total Bilirubin 0.7, AST 44, ALT 52, Alkaline Phosphatase 87, Troponin I < 0.01, Total Protein 7.0, Albumin 4.1, Globulin 2.9, Albumin/Globulin Ratio 1.4 11/03/18 17:45: WBC 9.3, RBC 4.99, Hgb 14.9, Hct 43.7, MCV 87.6, MCH 29.9, MCHC 34.1, RDW 13.1, Plt Count 209, MPV 8.9, Neut % (Auto) 74.5 H, Lymph % (Auto) 16.8 L, [place] % (Auto) 6.9 H, Eos % (Auto) 1.7, Baso % (Auto) 0.1, Lymph # (Auto) 1.6, [place] # (Auto) 0.6, Eos # (Auto) 0.2, Baso # (Auto) 0.01, Absolute Neuts (auto) 6.92 H I have reviewed the lab results: Yes - EKG Interpretation EKG Interpretation (Text): Rate 50; sinus bradycardia; normal intervals; no STEMI or other signs of acute ischemia Interpreted by ED Physician: Yes Type: 12 lead EKG - Medication Orders Current Medication Orders: Sodium Chloride (Sodium Chloride 0.9%) 1,000 mls @ 999 mls/hr IV .Q1H1M STA Stop: 11/03/18 18:16 Discontinued Medications Lorazepam (Ativan) 0.5 mg IVP ONCE ONE; Protocol Stop: 11/03/18 17:17 Disposition/Present on Arrival - Present on Arrival Any Indicators Present on Arrival: No History of DVT/PE: No History of Uncontrolled Diabetes: No Urinary Catheter: No History of Decub. Ulcer: No History Surgical Site Infection Following: None - Disposition Have Diagnosis and Disposition been Completed?: Yes Diagnosis: Anxiety Disposition: HOME/ ROUTINE Disposition Time: 20:45 Patient Plan: Discharge Condition: IMPROVED Discharge Instructions (ExitCare): Bradycardia, Anxiety, Adult (DC) Print Language: GERMAN Additional Instructions: Aumentar los fluidos Use cantu inhalador de albuterol cada 6 horas segn sea necesario, no lo use con ms frecuencia porque puede causar temblores Seguimiento con cardiologa dentro de 2 cordon. Seguimiento con mdico primario en 2 cordon. Regrese a la angel de emergencias con cualquier sntoma nuevo o que empeore. Referrals: [facility] [Outside] - [place] up with [place] [facility] [place] [facility] [place] - Follow up with primary Jaki Mcleod MD [Medical Doctor] - Follow up with primary Eddie Xiong MD [Staff Provider] - Follow up with primary Forms: [employer] (Lithuanian), WORK NOTE
[2018-11-03 18:08] LABS: BASO # 0.01 K/mm3 (0.0-2.0); BASO % 0.1 % (0.0-3.0); EOS # 0.2 (0.0-0.7); EOS % 1.7 % (1.5-5.0); HEMOGLOBIN 14.9 g/dL (14.0-18.0); LYMPH # 1.6 (1.2-3.4); LYMPH % 16.8 % (22.0-35.0); MEAN CELL VOLUME 87.6 fl (80.0-105.0); MEAN CORPUSCULAR HEMOGLOBIN 29.9 pg (25.0-35.0); MEAN CORPUSCULAR HGB CONC 34.1 g/dl (31.0-37.0); MEAN PLATELET VOLUME 8.9 fl (7.0-11.0); MONO # 0.6 (0.1-0.6); MONO % 6.9 % (1.0-6.0); RBC 4.99 10^6/uL (3.5-6.1); RED CELL DISTRIBUTION WIDTH 13.1 % (11.5-14.5); WHITE BLOOD COUNT 9.3 10^3/uL (4.5-11.0)
[2018-11-03 18:17] LABS: ALB/GLOB RATIO 1.4 (1.1-1.8); ALBUMIN 4.1 g/dL (3.0-4.8); ALT/SGPT 52 U/L (7-56); AST/SGOT 44 U/L (17-59); BLOOD UREA NITROGEN 13 mg/dL (7-21); CALCIUM 9.1 mg/dL (8.4-10.5); GFR NON-AFRICAN AMERICAN > 60
[2018-11-03 18:28] LABS: TROPONIN I < 0.01 ng/mL
[2018-11-03 19:32] LABS: FREE T4 1.05 ng/dL (0.78-2.19)
[2018-11-03 20:23] LABS: URINE BILIRUBIN NEGATIVE (NEGATIVE); URINE BLOOD NEGATIVE (NEGATIVE); URINE GLUCOSE (UA) NEGATIVE (NEGATIVE); URINE LEUKOCYTE ESTERASE NEGATIVE Leu/uL (NEGATIVE); URINE PROTEIN NEGATIVE mg/dL (<30 mg/dL); URINE UROBILINOGEN 0.2 E.U./dL (<1 E.U./dL)
[2018-11-03 20:26] LABS: URINE APPEARANCE CLEAR (CLEAR); URINE COLOR LIGHT YELLOW (YELLOW)
[2018-11-03 20:51] LABS: BARBITURATES, UR NEGATIVE (NEGATIVE); BENZODIAZEPINES, UR NEGATIVE (NEGATIVE); OPIATES, UR NEGATIVE (NEGATIVE); PHENCYCLIDINE, UR NEGATIVE (NEGATIVE)
[2018-11-03 23:53] VITALS: BP 128/76; PULSE 69; RESP 18; O2SAT 98
--- NOTE | 2018-11-04 05:24 | RAD ---
Date of service: 11/03/2018 HISTORY: palpitations COMPARISON: Comparison is made with 08/21/2018 TECHNIQUE: 1 view obtained. FINDINGS: LUNGS: No evidence of new infiltrate or consolidation in the lungs. PLEURA: No significant pleural effusion identified, no pneumothorax apparent. CARDIOVASCULAR: No aortic atherosclerotic calcification present. Normal cardiac size. No pulmonary vascular congestion. OSSEOUS STRUCTURES: No significant abnormalities. VISUALIZED UPPER ABDOMEN: Normal. OTHER FINDINGS: None. IMPRESSION: No active disease.
--- NOTE | 2018-11-04 19:09 | CARD ---
APPROVED REPORT Date of service: 11/03/2018 EKG Measurement Heart [id number] <Conclusion> Sinus bradycardia Otherwise normal ECG
== END 2018-11-03 21:00 | disposition home or self-care (01) ==
LOC: ED 16:31
DX: F41.9 Anxiety disorder, unspecified (principal); Z87.891 Personal history of nicotine dependence
CPT/HCPCS: 71045; 80053; 80324; 80345; 80346; 80349; 80353; 80358; 80361; 81003; 83735; 83992; 84100; 84439; 84443; 84484; 85025; 93005; 99283; J7030

== ENCOUNTER → 2018-11-19 | Outpatient (CLI) | payer OTHER | LOC: PULMO 09:58 ==

== ENCOUNTER 2018-11-21 10:52 | Outpatient (CLI) | payer OTHER | END 2018-11-21 10:53 | disposition home or self-care (01) | LOC: PULMO 10:52 ==